=== PATIENT | female | born 1985 | race Caucasian/White ===

== ENCOUNTER 2017-04-11 19:47 | Emergency (ER) | payer SELFPAY ==
--- NOTE | 2017-04-11 20:14 | EDM.PDOC ---
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 Patient indicates she had a positive test approximately 5 days ago and she is unable to determine how she is secondary to her irregular menstrual pattern. Patient indicates she does have some abdominal and lower back.] Review of systems: As per history of present illness and below otherwise all systems reviewed and negative. Past medical history: As per history of present illness and as reviewed below otherwise noncontributory. Surgical history: As per history of present illness and as reviewed below otherwise noncontributory. Social history: No reported history of drug or alcohol abuse. Family history: As per history of present illness and as reviewed below otherwise noncontributory. Physical exam: HEENT: Atraumatic, normocephalic, pupils reactive, negative for conjunctival pallor or scleral icterus, mucous membranes moist, throat clear, neck supple, nontender, trachea midline. Lungs: Clear to auscultation, breath sounds equal bilaterally, chest nontender. Heart: S1S2, regular, negative for clicks, rubs, or JVD. Abdomen: Soft, nondistended, nontender. Negative for masses or hepatosplenomegaly. Negative for costovertebral tenderness. Pelvis: Stable nontender. Genitourinary: Deferred. Rectal: Deferred. Extremities: Atraumatic, negative for cords or calf pain. Neurovascular unremarkable. Neuro: Awake, alert, oriented. Cranial nerves II through XII unremarkable. Cerebellum unremarkable. Motor and sensory unremarkable throughout. Exam nonfocal. Global assessment is benign save the subjective complaint as noted in the history of present illness Diagnostics: [CBC, CMP, UA, transvaginal ultrasound] Therapeutics: [] Impression: [Live intrauterine ] Plan: [Pelvic rest follow-up with OB] Definitive disposition and diagnosis as appropriate pending reevaluation and review of above. abdomen Pain Score (Numeric/FACES): 2 - Related Data Allergies Allergy/AdvReac Type Severity Reaction Status Date / Time No Known Allergies Allergy Verified 04/11/17 19:52 Home Meds: Home Meds . 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: Musculoskeletal History: Reports: None Psychiatric History: Reports: None - Infectious Disease History Infectious Disease History: Reports: Chicken Pox - Past Surgical History Cardiovascular Surgical History: Reports: None Social & Family History - Family History Family Medical History: Noncontributory - Tobacco Use Smoking Status *Q: Current Every Day Smoker Years of Tobacco use: 5 Packs/Tins Daily: 1 Used Tobacco, but Quit: No Second Hand Smoke Exposure: No - Alcohol Use Days Per Week of Alcohol Use: 0 - Recreational Drug Use Recreational Drug Use: No ED ROS GENERAL - Review of Systems Review Of Systems: See Below (See history of present illness) ED EXAM - Physical Exam Exam: See Below (See history of present illness) Course - Vital Signs Last Recorded V/S: Last Vital Signs Temp 36.9 C 04/11/17 19:59 Pulse 121 H 04/11/17 19:59 Resp 18 04/11/17 19:59 BP 155/91 H 04/11/17 19:59 Pulse Ox - Orders/Labs/Meds Orders: Active Orders 24 hr Category Date Time Status OB 1st Tri Sgl 1st Gest [US] Stat Exams 04/11/17 20:03 Ordered UA W/MICROSCOPIC [URIN] Stat Lab 04/11/17 20:03 Uncollected Labs: Laboratory Tests 04/11/17 04/11/17 Range/Units 20:11 20:11 WBC 10.77 (4.0-11.0) K/uL RBC 3.85 L (4.30-5.90) M/uL Hgb 11.7 L (12.0-16.0) g/dL Hct 33.4 L (36.0-46.0) % MCV 86.8 (80.0-98.0) fL MCH 30.4 (27.0-32.0) pg MCHC 35.0 (31.0-37.0) g/dL RDW Std Deviation 40.7 (28.0-62.0) fl RDW Coeff of Chichi 13 (11.0-15.0) % Plt Count 171 (150-400) K/uL MPV 9.50 (7.40-12.00) fL Neut % (Auto) 75.5 (48.0-80.0) % Lymph % (Auto) 18.0 (16.0-40.0) % Ward % (Auto) 5.8 (0.0-15.0) % Eos % (Auto) 0.6 (0.0-7.0) % Baso % (Auto) 0.1 (0.0-1.5) % Neut # (Auto) 8.1 H (1.4-5.7) K/uL Lymph # (Auto) 1.9 (0.6-2.4) K/uL Ward # (Auto) 0.6 (0.0-0.8) K/uL Eos # (Auto) 0.1 (0.0-0.7) K/uL Baso # (Auto) 0.0 (0.0-0.1) K/uL Nucleated RBC % 0.0 /100WBC Nucleated RBCs # 0 K/uL HCG, Quant 08252.1 mIU/mL Departure - Departure Time of Disposition: 21:35 Disposition: Home, Self-Care 01 Condition: Good Clinical Impression: Threatened - Discharge Information Forms: ED Department Discharge Additional Instructions: The following information is given to patients seen in the emergency department who are being discharged to home. This information is to outline your options for follow-up care. We provide all patients seen in our emergency department with a follow-up referral. The need for follow-up, as well as the timing and circumstances, are variable depending upon the specifics of your emergency department visit. If you don't have a primary care physician on staff, we will provide you with a referral. We always advise you to contact your personal physician following an emergency department visit to inform them of the circumstance of the visit and for follow-up with them and/or the need for any referrals to a consulting specialist. The emergency department will also refer you to a specialist when appropriate. This referral assures that you have the opportunity for follow-up care with a specialist. All of these measure are taken in an effort to provide you with optimal care, which includes your follow-up. Under all circumstances we always encourage you to contact your private physician who remains a resource for coordinating your care. When calling for follow-up care, please make the office aware that this follow-up is from your recent emergency room visit. If for any reason you are refused follow-up, please contact the [facility] Emergency Department at and asked to speak to the emergency department charge nurse. Follow up with an OB some time at the beginning of next week as discussed Complete pelvic rest no stimulation from the navel to the knees the next 6 weeks Return to ED as needed as discussed [facility] [address] [place] [id number] - My Orders Last 24 Hours: My Active Orders 04/11/17 20:03 OB 1st Tri Sgl 1st Gest [US] Stat UA W/MICROSCOPIC [URIN] Stat - Assessment/Plan Last 24 Hours: My Active Orders 04/11/17 20:03 OB 1st Tri Sgl 1st Gest [US] Stat UA W/MICROSCOPIC [URIN] Stat
[2017-04-11 21:38] VITALS: BP 124/87
--- NOTE | 2017-04-14 11:25 | US ---
EXAM DATE: 04/11/17 PATIENT'S AGE: 31 Patient: JESSICA MORILLO Facility: [place], [place] Site . Site : 1985 Study: US OB Pelvis [id number]/18/2017 9:09:03 PM Ordering Physician: Doctor Radford Final Report: INDICATION: Vaginal discharge. TECHNIQUE: 2D woodard scale imaging was performed of the pelvis. FINDINGS: Sonographic imaging demonstrates a single living intrauterine gestation. The fetus demonstrates a regular cardiac rate measuring 150 beats per minute. The crown-rump length measurement of 6.6 cm corresponds to a gestational age of 12 weeks 6 days with a sonographic due date of 10/17/2017. There are no gross abnormalities noted within the fetus at this early state of development. The placenta is beginning to developanteriorlyand there is a 8 mm cystic area within the mid portion of the placenta suggesting a small venous saleh. There is no evidence of a perigestational hemorrhage. The gestational sac has a normal appearance and the amount of fluid within the sac appears appropriate for gestational age. The cervix was not imaged. The myometrium appears normal. The ovaries are of normal size. There are no suspicious fluid collections noted in the cul-de-sac. IMPRESSION: Small 8 mm venous saleh noted within the developing anterior placenta. The fetus has a gestational age of 12 weeks 6 days with a sonographic due date of 2017. Dictated by Darrick Morales MD @ Apr 11 2017 9:12PM (Electronic Signature) Report Signed by Proxy. RUBY
== END 2017-04-11 21:45 | disposition home or self-care (01) ==
LOC: MW.ED 19:47
DX: O20.0 Threatened abortion (principal); O99.331 Smoking (tobacco) complicating pregnancy, first trimester; F17.210 Nicotine dependence, cigarettes, uncomplicated
CPT/HCPCS: 76801; 76801-26; 81001; 84702; 85025; 99283; 99284-25

== ENCOUNTER 2017-10-15 15:56 | Inpatient (IN) | payer MEDICAID ==
[2017-10-15] MEDS ORDERED: Sodium Chloride 0.9% 2.5 ML Syringe FLUSH PRN (16:06)
[2017-10-15] MEDS ORDERED: Butorphanol 1 MG/ML SDV IVPUSH PRN (16:06)
[2017-10-15] MEDS ORDERED: Water For Irrigation,Sterile 1,000 ML Container IRR PRN (16:06)
[2017-10-15] MEDS ORDERED: Methylergonovine 0.2 MG/1 ML Amp IM PRN (16:06)
[2017-10-15] MEDS ORDERED: Misoprostol 200 MCG Tab PO PRN (16:06)
[2017-10-15] MEDS ORDERED: Tranexamic Acid 1,000 MG in Sodium Chloride 0.9% 100 ML IV PRN (16:06)
[2017-10-15] MEDS ORDERED: Nalbuphine 10 MG/1 ML Vial IVPUSH PRN (16:06)
[2017-10-15] MEDS ORDERED: Carboprost Tromethamine 250 MCG/1 ML Amp IM PRN (16:06)
[2017-10-15] MEDS ORDERED: Sodium Chloride 0.9% 10 ML Syringe FLUSH PRN (16:06)
[2017-10-15] MEDS ORDERED: Lidocaine 1% 50 ML MDV INJECT PRN (16:06)
[2017-10-15] MEDS ORDERED: Oxytocin/0.9 % Sodium Chloride 30 UNIT/500 ML BAG IV SCH (16:15)
[2017-10-15] MEDS: Lactated Ringers 1,000 ML IV SCH ×2 (16:20→17:05)
[2017-10-15] MEDS ORDERED: Ampicillin 2 GM in Sodium Chloride 0.9% 100 ML IV ONE (16:41)
[2017-10-15] MEDS ORDERED: fentaNYL 100 MCG/2 ML SDV ONE (16:45)
--- NOTE | 2017-10-15 17:07 | PCM.PREANE ---
Preanesthetic Assessment - Anesthesia/Transfusion/Family Hx Anesthesia History: Prior Anesthesia Without Reaction (epidurals only) Family History of Anesthesia Reaction: No - Review of Systems General: No Symptoms Pulmonary: No Symptoms Cardiovascular: No Symptoms Gastrointestinal: No Symptoms Neurological: No Symptoms Other: Reports: Anxiety (high anxiety with labor pain) - Physical Assessment NPO Status Date: 10/15/17 NPO Status Time: 17:03 (sips/chips) ASA Class: 2 Mental Status: Alert & Oriented x3 Airway Class: Mallampati = 2 Dentition: Reports: Normal Dentition ROM/Head Extension: Full Lungs: Clear to Auscultation, Normal Respiratory Effort Cardiovascular: Regular Rate, Regular Rhythm - Lab Values: Laboratory Last Values WBC 9.70 K/uL (4.0-11.0) 10/15/17 16:25 RBC 3.61 M/uL (4.30-5.90) L 10/15/17 16:25 Hgb 10.1 g/dL (12.0-16.0) L 10/15/17 16:25 Hct 30.3 % (36.0-46.0) L 10/15/17 16:25 MCV 83.9 fL (80.0-98.0) 10/15/17 16:25 MCH 28.0 pg (27.0-32.0) 10/15/17 16:25 MCHC 33.3 g/dL (31.0-37.0) 10/15/17 16:25 RDW Std Deviation 42.8 fl (28.0-62.0) 10/15/17 16:25 RDW Coeff of Chichi 14 % (11.0-15.0) 10/15/17 16:25 Plt Count 185 K/uL (150-400) 10/15/17 16:25 MPV 10.70 fL (7.40-12.00) 10/15/17 16:25 Nucleated RBC % 0.0 /100WBC 10/15/17 16:25 Nucleated RBCs # 0 K/uL 10/15/17 16:25 - Allergies Allergies/Adverse Reactions: Allergies Allergy/AdvReac Type Severity Reaction Status Date / Time No Known Allergies Allergy Verified 04/11/17 19:52 - Blood Blood Available: No Product(s) Available: None - Anesthesia Plan Free Text/Narrative:: Labor Epidural vs Intrathecal - after discussing with pt, she is agreement to do the intrathecal now as she has had fast labors in the past and was dilated to 6cm on arrival - pt understands that we can place a labor epidural if it looks like she is not advancing as quickly as we thought she would. Pt has also only had one visit. 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 [No Known Home Meds] 08/11/14 [History] - CURRENT (IN HOUSE) MEDS Current Meds: Current Medications Butorphanol Tartrate (Stadol) 1 mg IVPUSH Q1H PRN PRN Reason: Pain Carboprost Tromethamine (Hemabate Ds) 250 mcg IM ASDIRECTED PRN PRN Reason: Post Hemorrhage Lactated Ringer's (Ringers, Lactated) 1,000 mls @ 150 mls/hr IV ASDIRECTED [facility] Oxytocin/Sodium Chloride (Oxytocin 30 Unit/500 Ml-Ns) 30 unit in 500 mls @ 999 mls/hr IV TITRATE [facility] Tranexamic Acid 1,000 mg/ (Sodium Chloride) 110 mls @ 600 mls/hr IV ONETIME PRN PRN Reason: Bleeding Ampicillin Sodium 2 gm/ Sodium (Chloride) 100 mls @ 200 mls/hr IV ONETIME ONE Stop: 10/15/17 17:10 Ampicillin Sodium 1 gm/ Sodium (Chloride) 50 mls @ 100 mls/hr IV Q4H [facility] Lidocaine HCl (Xylocaine 1%) 50 ml INJECT .ONCE PRN PRN Reason: Laceration repair Methylergonovine Maleate (Methergine) 0.2 mg IM ASDIRECTED PRN PRN Reason: Post Hemorrhage Misoprostol (Cytotec) 200 mcg PO .ONCE PRN PRN Reason: Post Hemorrhage Nalbuphine HCl (Nubain) 10 mg IVPUSH Q1H PRN PRN Reason: Pain (severe 7-10) Sodium Chloride (Saline Flush) 10 ml FLUSH ASDIRECTED PRN PRN Reason: Keep Vein Open Sodium Chloride (Saline Flush) 2.5 ml FLUSH ASDIRECTED PRN PRN Reason: Keep Vein Open Sterile Water (Sterile Water For Irrigation) 1,000 ml IRR ASDIRECTED PRN PRN Reason: delivery Discontinued Medications Fentanyl (Sublimaze) Confirm Administered Dose 100 mcg .ROUTE .STK-MED ONE Stop: 10/15/17 16:46 Fentanyl/Bupivacaine HCl (Vkesdxbb-Kmbys-Dm 2 Mcg/Ml-0.125%) Confirm Administered Dose 100 mls @ as directed EP .STK-MED ONE Stop: 10/15/17 16:46
--- NOTE | 2017-10-15 17:36 | PCM.LDHP ---
L&D History of Present Illness - General Date of Service: 10/15/17 Admit Problem/Dx: Patient Status Order with Admit Dx/Problem 10/15/17 16:06 Patient Status [ADT] Routine Admission Diagnosis/Problem Admission Diagnosis/Problem Source of Information: Patient History Limitations: Reports: No Limitations - History of Present Illness Improves with: Reports: None Worsens with: Reports: None Associated Symptoms: Reports: N - Related Data Allergies/Adverse Reactions: Allergies Allergy/AdvReac Type Severity Reaction Status Date / Time No Known Allergies Allergy Verified 10/15/17 17:31 Home Medications: Home Meds . 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: Musculoskeletal History: Reports: None Psychiatric History: Reports: None - Infectious Disease History Infectious Disease History: Reports: Chicken Pox - Past Surgical History Cardiovascular Surgical History: Reports: None Social & Family History - Family History Family Medical History: Noncontributory - Tobacco Use Smoking Status *Q: Current Every Day Smoker Years of Tobacco use: 5 Packs/Tins Daily: 1 Used Tobacco, but Quit: No Second Hand Smoke Exposure: No - Alcohol Use Days Per Week of Alcohol Use: 0 - Recreational Drug Use Recreational Drug Use: No H&P Review of Systems - Review of Systems: Review Of Systems: See Below General: Reports: No Symptoms HEENT: Reports: No Symptoms Pulmonary: Reports: No Symptoms Cardiovascular: Reports: No Symptoms Gastrointestinal: Reports: No Symptoms Genitourinary: Reports: No Symptoms Musculoskeletal: Reports: No Symptoms Skin: Reports: No Symptoms Psychiatric: Reports: No Symptoms Neurological: Reports: No Symptoms Hematologic/Lymphatic: Reports: No Symptoms Immunologic: Reports: No Symptoms L&D Exam - Exam Exam: See Below - Vital Signs Weight: 76.204 kg - OB Specific Fundal Height In cm: 38 Contraction Intensity: Moderate to Strong Movement: Active Heart Tones: Present Presentation: Vertex - Exam General: Alert, Oriented HEENT: PERRLA, Conjunctiva Clear, EACs Clear, EOMI, Hearing Intact, Mucosa Moist & [place], Nares Patent, Normal Nasal Septum, Posterior Pharynx Clear, TMs Clear Neck: Supple, Trachea Midline Lungs: Clear to Auscultation, Normal Respiratory Effort Cardiovascular: Regular Rate, Regular Rhythm GI/Abdominal Exam: Normal Bowel Sounds, Soft, Non-Tender, No Organomegaly, No Distention, No Abnormal Bruit, No Mass, Pelvis Stable Rectal Exam: Normal Exam, Normal Rectal Tone Genitourinary: Normal external exam, Normal bimanual exam, Normal speculum exam Back Exam: Normal Inspection, Full Range of Motion Extremities: Normal Inspection, Normal Range of Motion, Non-Tender, No Pedal Edema, Normal Capillary Refill Skin: Warm, Dry, Intact Neurological: Cranial Nerves Intact, Reflexes Equal Bilateral Psychiatric: Alert, Normal Affect, Normal Mood - Patient Data Lab Results Last 24 hrs: Laboratory Results - last 24 hr 10/15/17 10/15/17 Range/Units 16:25 16:25 WBC 9.70 (4.0-11.0) K/uL RBC 3.61 L (4.30-5.90) M/uL Hgb 10.1 L (12.0-16.0) g/dL Hct 30.3 L (36.0-46.0) % MCV 83.9 (80.0-98.0) fL MCH 28.0 (27.0-32.0) pg MCHC 33.3 (31.0-37.0) g/dL RDW Std Deviation 42.8 (28.0-62.0) fl RDW Coeff of Chicih 14 (11.0-15.0) % Plt Count 185 (150-400) K/uL MPV 10.70 (7.40-12.00) fL Nucleated RBC % 0.0 /100WBC Nucleated RBCs # 0 K/uL Blood Type A POSITIVE Antibody Screen NEGATIVE Result Diagrams: 10/15/17 16:25 Problem List Initiated/Reviewed/Updated: Yes Orders Last 24hrs: Active Orders 24 hr Category Date Time Status Patient Status [ADT] Routine ADT 10/15/17 16:06 Active Heart Tones [RC] CONTINUOUS Care 10/15/17 16:06 Active Non Stress Test [RC] PER UNIT ROUTINE Care 10/15/17 16:06 Active May Shower [RC] ASDIRECTED Care 10/15/17 16:06 Active Notify Provider [RC] PRN Care 10/15/17 16:06 Active Up ad Dulce [RC] ASDIRECTED Care 10/15/17 16:06 Active Vaginal Exam [RC] PRN Care 10/15/17 16:06 Active Vital Signs [RC] PER UNIT ROUTINE Care 10/15/17 16:06 Active DRUG SCREEN, URINE [URCHEM] Routine Lab 10/15/17 17:31 Ordered TYPE AND SCREEN [BBK] Routine Lab 10/15/17 16:25 Received Ampicillin 1 gm Med 10/15/17 20:45 Active Sodium Chloride 0.9% [Normal Saline] 50 ml IV Q4H Butorphanol [Stadol] Med 10/15/17 16:06 Active 1 mg IVPUSH Q1H PRN Carboprost Tromethamine [Hemabate DS] Med 10/15/17 16:06 Active 250 mcg IM ASDIRECTED PRN Lactated Ringers [Ringers, Lactated] 1,000 ml Med 10/15/17 16:15 Active IV ASDIRECTED Lidocaine 1% [Xylocaine 1%] Med 10/15/17 16:06 Active 50 ml INJECT .ONCE PRN Methylergonovine [Methergine] Med 10/15/17 16:06 Active 0.2 mg IM ASDIRECTED PRN Misoprostol [Cytotec] Med 10/15/17 16:06 Active 200 mcg PO .ONCE PRN Nalbuphine [Nubain] Med 10/15/17 16:06 Active 10 mg IVPUSH Q1H PRN Oxytocin/0.9 % Sodium Chloride [Oxytocin 30 Unit/500 ML Med 10/15/17 16:15 Active -NS] 30 unit in 500 ml IV TITRATE Sodium Chloride 0.9% [Saline Flush] Med 10/15/17 16:06 Active 10 ml FLUSH ASDIRECTED PRN Sodium Chloride 0.9% [Saline Flush] Med 10/15/17 16:06 Active 2.5 ml FLUSH ASDIRECTED PRN Tranexamic Acid [Cyklokapron] 1,000 mg Med 10/15/17 16:06 Active Sodium Chloride 0.9% [Normal Saline] 100 ml IV ONETIME Water For Irrigation,Sterile [Sterile Water for Med 10/15/17 16:06 Active Irrigation] 1,000 ml IRR ASDIRECTED PRN Scalp Electrode [WOMSER] Per Unit Routine Oth 10/15/17 16:06 Ordered Peripheral IV Insertion Adult [OM.PC] Routine Oth 10/15/17 16:06 Ordered Resuscitation Status Routine Resus Stat 10/15/17 16:06 Ordered Medication Orders Butorphanol Tartrate (Stadol) 1 mg IVPUSH Q1H PRN PRN Reason: Pain Carboprost Tromethamine (Hemabate Ds) 250 mcg IM ASDIRECTED PRN PRN Reason: Post Hemorrhage Lactated Ringer's (Ringers, Lactated) 1,000 mls @ 150 mls/hr IV ASDIRECTED [facility] Last Admin: 10/15/17 17:05 Dose: 150 mls/hr Infusion: 10/15/17 17:05 Dose: 999 mls/hr Admin: 10/15/17 16:20 Dose: 999 mls/hr Oxytocin/Sodium Chloride (Oxytocin 30 Unit/500 Ml-Ns) 30 unit in 500 mls @ 999 mls/hr IV TITRATE [facility] Tranexamic Acid 1,000 mg/ (Sodium Chloride) 110 mls @ 600 mls/hr IV ONETIME PRN PRN Reason: Bleeding Ampicillin Sodium 1 gm/ Sodium (Chloride) 50 mls @ 100 mls/hr IV Q4H [facility] Lidocaine HCl (Xylocaine 1%) 50 ml INJECT .ONCE PRN PRN Reason: Laceration repair Methylergonovine Maleate (Methergine) 0.2 mg IM ASDIRECTED PRN PRN Reason: Post Hemorrhage Misoprostol (Cytotec) 200 mcg PO .ONCE PRN PRN Reason: Post Hemorrhage Nalbuphine HCl (Nubain) 10 mg IVPUSH Q1H PRN PRN Reason: Pain (severe 7-10) Sodium Chloride (Saline Flush) 10 ml FLUSH ASDIRECTED PRN PRN Reason: Keep Vein Open Sodium Chloride (Saline Flush) 2.5 ml FLUSH ASDIRECTED PRN PRN Reason: Keep Vein Open Sterile Water (Sterile Water For Irrigation) 1,000 ml IRR ASDIRECTED PRN PRN Reason: delivery Assessment/Plan Comment:: This is a 31 years old patient she is para [id number] she was seen in our clinic 1 time at gestational age 14 according to that the patient EDC is in October 17, 2017 the patient presented to labor and delivery in active labor at the time of admission 5-6 cm dilated vertex with the leaking back before however according to labor and delivery nurses the patient is have bulging bag of water. Her GBS status is unknown shows start her on antibiotic the patient requested epidural try to accommodate that the patient admitted to labor and delivery nurse that she is using methamphetamine and marijuana throughout this .
[2017-10-15] MEDS ORDERED: Lanolin 100% Cream 7 GM Tube TOP PRN (18:30)
[2017-10-15] MEDS ORDERED: Benzocaine/Menthol 20%-0.5% Spray 78 GM Cannister TOP PRN (18:30)
[2017-10-15] MEDS ORDERED: Witch Hazel Medicated Pads 40/Jar TOP PRN (18:30)
[2017-10-15] MEDS ORDERED: Ibuprofen 400 MG Tab PO PRN (18:30)
[2017-10-15] MEDS ORDERED: Bisacodyl 10 MG Supp RECTAL PRN (18:30)
[2017-10-15] MEDS ORDERED: Acetaminophen 500 MG Tab PO PRN (18:30)
[2017-10-15] MEDS ORDERED: Docusate Sodium 100 MG Cap PO PRN (18:30)
[2017-10-15] MEDS: oxyCODONE 5 MG Tab PO PRN (19:19)
[2017-10-15] MEDS: Ibuprofen 800 MG Tab PO PRN (19:20)
[2017-10-15] MEDS ORDERED: Butorphanol 1 MG/ML SDV ONE (20:14)
[2017-10-15] MEDS ORDERED: Ampicillin 1 GM in Sodium Chloride 0.9% 50 ML IV SCH (20:45)
--- NOTE | 2017-10-15 23:22 | OR ---
SURGEON: Cristino Junior MD DATE OF PROCEDURE: Ms. Nj is a 31-year-old. She is para 5-0-0-4. She is presented to Labor and Delivery in active labor. The patient was seen in the clinic once in this and that was at gestational age of 14 weeks. The patient did not report back to the clinic. However, at that time, we set her due date as October 17, 2017. The patient at that time presented in active labor. She was 5-6 cm dilated and in active labor. heart rate essentially is category I. The patient's GBS status is negative, so she was started on antibiotic appropriately and after antibiotic was infused, then she progressed to 8-9 cm, she started leaking fluid, and she ruptured spontaneously and during the examination, I finished rupturing her membrane. There was a meconium stained amniotic fluid. The patient had an intrathecal for her labor analgesia, and she continued to progress, and she was able to accomplish normal spontaneous vaginal delivery of a female fetus. score reported to be 8 and 9. The weight is not available. The placenta have to be delivered manually because the cord is disintegrated. Estimated blood loss, 250 to 300 mL. heart rate was category I. The patient admitted to the Labor and Delivery staff that she used meth and pot during this . Drug screen is sent for this purpose. There was no complication in this labor and . FRANKY / CHRISTOFER /[id number]
[2017-10-16] MEDS: oxyCODONE 5 MG Tab PO PRN ×4 (05:09→19:59)
[2017-10-16] MEDS: Ibuprofen 800 MG Tab PO PRN ×3 (05:10→19:58)
--- NOTE | 2017-10-16 07:15 | PCM48HPAN ---
Post Anesthesia Note - EVALUATION WITHIN 48HRS OF ANESTHETIC Vital Signs in Normal Range: Yes Patient Participated in Evaluation: Yes Respiratory Function Stable: Yes Airway Patent: Yes Cardiovascular Function Stable: Yes Hydration Status Stable: Yes Pain Control Satisfactory: Yes Nausea and Vomiting Control Satisfactory: Yes Mental Status Recovered: Yes Resp Rate: 14
[2017-10-16] MEDS: Acetaminophen 500 MG Tab PO PRN ×2 (08:28→13:54)
--- NOTE | 2017-10-16 10:17 | PCM.PNPP ---
- General Info Date of Service: 10/16/17 Functional Status: Reports: Pain Controlled - Review of Systems General: Reports: No Symptoms HEENT: Reports: No Symptoms Pulmonary: Reports: No Symptoms Cardiovascular: Reports: No Symptoms Gastrointestinal: Reports: No Symptoms Genitourinary: Reports: No Symptoms Musculoskeletal: Reports: No Symptoms Skin: Reports: No Symptoms Neurological: Reports: No Symptoms Psychiatric: Reports: No Symptoms - General Info Date of Service: 10/16/17 - Patient Data Vital Signs - Most Recent: Last Vital Signs Temp 36.6 C 10/16/17 08:10 Pulse 106 H 10/16/17 08:10 Resp 17 10/16/17 08:10 BP 112/63 10/16/17 08:10 Pulse Ox 98 10/16/17 08:10 Weight - Most Recent: 76.204 kg Lab Results - Last 24 Hours: Laboratory Results - last 24 hr 10/15/17 10/15/17 10/15/17 Range/Units 16:25 16:25 17:15 WBC 9.70 (4.0-11.0) K/uL RBC 3.61 L (4.30-5.90) M/uL Hgb 10.1 L (12.0-16.0) g/dL Hct 30.3 L (36.0-46.0) % MCV 83.9 (80.0-98.0) fL MCH 28.0 (27.0-32.0) pg MCHC 33.3 (31.0-37.0) g/dL RDW Std Deviation 42.8 (28.0-62.0) fl RDW Coeff of [place]ichi 14 (11.0-15.0) % Plt Count 185 (150-400) K/uL MPV 10.70 (7.40-12.00) fL Nucleated RBC % 0.0 /100WBC Nucleated RBCs # 0 K/uL Urine Opiates Screen NEGATIVE (NEGATIVE) Ur Oxycodone Screen NEGATIVE (NEGATIVE) Urine Methadone Screen NEGATIVE (NEGATIVE) Ur Barbiturates Screen NEGATIVE (NEGATIVE) Ur Phencyclidine Scrn NEGATIVE (NEGATIVE) Ur Amphetamine Screen NEGATIVE (NEGATIVE) U Methamphetamines Scrn POSITIVE (NEGATIVE) U Benzodiazepines Scrn NEGATIVE (NEGATIVE) U Cocaine Metab Screen NEGATIVE (NEGATIVE) U Marijuana (THC) Screen POSITIVE (NEGATIVE) Blood Type A POSITIVE Antibody Screen NEGATIVE 10/15/17 10/15/17 10/16/17 Range/Units 21:00 21:00 05:12 WBC (4.0-11.0) K/uL RBC (4.30-5.90) M/uL Hgb 9.5 L 8.0 L (12.0-16.0) g/dL Hct 28.3 L 24.0 L (36.0-46.0) % MCV (80.0-98.0) fL MCH (27.0-32.0) pg MCHC (31.0-37.0) g/dL RDW Std Deviation (28.0-62.0) fl RDW Coeff of [place] (11.0-15.0) % Plt Count (150-400) K/uL MPV (7.40-12.00) fL Nucleated RBC % /100WBC Nucleated RBCs # K/uL Urine Opiates Screen (NEGATIVE) Ur Oxycodone Screen (NEGATIVE) Urine Methadone Screen (NEGATIVE) Ur Barbiturates Screen (NEGATIVE) Ur Phencyclidine Scrn (NEGATIVE) Ur Amphetamine Screen (NEGATIVE) U Methamphetamines Scrn (NEGATIVE) U Benzodiazepines Scrn (NEGATIVE) U Cocaine Metab Screen (NEGATIVE) U Marijuana (THC) Screen (NEGATIVE) Blood Type Antibody Screen Med Orders - Current: Current Medications Acetaminophen (Tylenol Extra Strength) 500 mg PO Q4H PRN PRN Reason: Pain Acetaminophen (Tylenol Extra Strength) 1,000 mg PO Q4H PRN PRN Reason: Pain Last Admin: 10/16/17 08:28 Dose: 1,000 mg Benzocaine/Menthol (Dermoplast Pain Relief 20%-0.5% [place]) 0 gm TOP ASDIRECTED PRN PRN Reason: Perineal Comfort Measure Bisacodyl (Dulcolax) 10 mg RECTAL .ONCE PRN PRN Reason: Constipation Butorphanol Tartrate (Stadol) 1 mg IVPUSH Q1H PRN PRN Reason: Pain Last Admin: 10/15/17 20:18 Dose: 1 mg Carboprost Tromethamine (Hemabate Ds) 250 mcg IM ASDIRECTED PRN PRN Reason: Post Hemorrhage Docusate Sodium (Colace) 100 mg PO BID PRN PRN Reason: Constipation Emollient Ointment (Lansinoh Hpa) 0 gm TOP ASDIRECTED PRN PRN Reason: Sore Nipples Lactated Ringer's (Ringers, Lactated) 1,000 mls @ 150 mls/hr IV ASDIRECTED [facility] Last Admin: 10/15/17 17:05 Dose: 150 mls/hr Oxytocin/Sodium Chloride (Oxytocin 30 Unit/500 Ml-Ns) 30 unit in 500 mls @ 999 mls/hr IV TITRATE [facility] Last Admin: 10/15/17 18:21 Dose: 999 mls/hr Tranexamic Acid 1,000 mg/ (Sodium Chloride) 110 mls @ 600 mls/hr IV ONETIME PRN PRN Reason: Bleeding Ampicillin Sodium 1 gm/ Sodium (Chloride) 50 mls @ 100 mls/hr IV Q4H [facility] Ibuprofen (Motrin) 400 mg PO Q4H PRN PRN Reason: Pain Ibuprofen (Motrin) 800 mg PO Q6H PRN PRN Reason: Pain Last Admin: 10/16/17 05:10 Dose: 800 mg Lidocaine HCl (Xylocaine 1%) 50 ml INJECT .ONCE PRN PRN Reason: Laceration repair Methylergonovine Maleate (Methergine) 0.2 mg IM ASDIRECTED PRN PRN Reason: Post Hemorrhage Last Admin: 10/15/17 19:58 Dose: 0.2 mg Misoprostol (Cytotec) 200 mcg PO .ONCE PRN PRN Reason: Post Hemorrhage Nalbuphine HCl (Nubain) 10 mg IVPUSH Q1H PRN PRN Reason: Pain (severe 7-10) Oxycodone HCl (Oxycodone) 5 mg PO Q2H PRN PRN Reason: Pain Last Admin: 10/16/17 08:28 Dose: 5 mg Sodium Chloride (Saline Flush) 10 ml FLUSH ASDIRECTED PRN PRN Reason: Keep Vein Open Sodium Chloride (Saline Flush) 2.5 ml FLUSH ASDIRECTED PRN PRN Reason: Keep Vein Open Sterile Water (Sterile Water For Irrigation) 1,000 ml IRR ASDIRECTED PRN PRN Reason: delivery Witch Demetrice (Tucks) 1 pad TOP ASDIRECTED PRN PRN Reason: comfort care Discontinued Medications Butorphanol Tartrate (Stadol) Confirm Administered Dose 1 mg .ROUTE .STK-MED ONE Stop: 10/15/17 20:15 Last Admin: 10/15/17 20:34 Dose: 1 mg Fentanyl (Sublimaze) Confirm Administered Dose 100 mcg .ROUTE .STK-MED ONE Stop: 10/15/17 16:46 Ampicillin Sodium 2 gm/ Sodium (Chloride) 100 mls @ 200 mls/hr IV ONETIME ONE Stop: 10/15/17 17:10 Last Admin: 10/15/17 17:20 Dose: 200 mls/hr Fentanyl/Bupivacaine HCl (Npgtmoze-Mkvno-Hv 2 Mcg/Ml-0.125%) Confirm Administered Dose 100 mls @ as directed EP .STK-MED ONE Stop: 10/15/17 16:46 - Interaction Disposition, : Not Applicable Infant Interaction: Not Applicable Support Person: Mother - Recovery Exam Fundal Tone: Firm Fundal Level: At Umbilicus Fundal Placement: Midline Lochia Amount: Small Lochia Color: Rubra/Red Perineum Description: Intact, Minimal Bruising/Swelling Episiotomy/Laceration: None Bladder Status: Voiding - Exam General: Alert, Oriented HEENT: Pupils Equal Neck: Supple Lungs: Clear to Auscultation, Normal Respiratory Effort Cardiovascular: Regular Rate, Regular Rhythm GI/Abdominal Exam: Normal Bowel Sounds, Soft, Non-Tender, No Organomegaly, No Distention, No Abnormal Bruit, No Mass, Pelvis Stable Extremities: Normal Inspection, Normal Range of Motion, Non-Tender, No Pedal Edema, Normal Capillary Refill Skin: Warm, Dry, Intact Wound/Incisions: Healing Well Neurological: No New Focal Deficit Psy/Mental Status: Alert, Normal Affect, Normal Mood - Problem List Review Problem List Initiated/Reviewed/Updated: Yes - My Orders Last 24 Hours: My Active Orders 10/15/17 16:06 Butorphanol [Stadol] 1 mg IVPUSH Q1H PRN Carboprost Tromethamine [Hemabate DS] 250 mcg IM ASDIRECTED PRN Lidocaine 1% [Xylocaine 1%] 50 ml INJECT .ONCE PRN Methylergonovine [Methergine] 0.2 mg IM ASDIRECTED PRN Misoprostol [Cytotec] 200 mcg PO .ONCE PRN Nalbuphine [Nubain] 10 mg IVPUSH Q1H PRN Sodium Chloride 0.9% [Saline Flush] 10 ml FLUSH ASDIRECTED PRN Sodium Chloride 0.9% [Saline Flush] 2.5 ml FLUSH ASDIRECTED PRN Tranexamic Acid [Cyklokapron] 1,000 mg Sodium Chloride 0.9% [Normal Saline] 100 ml IV ONETIME Water For Irrigation,Sterile [Sterile Water for Irrigation] 1,000 ml IRR ASDIRECTED PRN Scalp Electrode [WOMSER] Per Unit Routine Peripheral IV Insertion Adult [OM.PC] Routine Resuscitation Status Routine 10/15/17 16:15 Lactated Ringers [Ringers, Lactated] 1,000 ml IV ASDIRECTED Oxytocin/0.9 % Sodium Chloride [Oxytocin 30 Unit/500 ML-NS] 30 unit in 500 ml IV TITRATE 10/15/17 18:30 Patient Status [ADT] Routine May Shower [RC] ASDIRECTED Up ad [place] [RC] ASDIRECTED Vital Signs [RC] PER UNIT ROUTINE Acetaminophen [Tylenol Extra Strength] 1,000 mg PO Q4H PRN Acetaminophen [Tylenol Extra Strength] 500 mg PO Q4H PRN Benzocaine/Menthol [Dermoplast Pain Relief 20%-0.5% [place]] 0 gm TOP ASDIRECTED PRN Bisacodyl [Dulcolax] 10 mg RECTAL .ONCE PRN Docusate Sodium [Colace] 100 mg PO BID PRN Ibuprofen [Motrin] 400 mg PO Q4H PRN Ibuprofen [Motrin] 800 mg PO Q6H PRN Lanolin [Lansinoh HPA] See Dose Instructions TOP ASDIRECTED PRN Witch Demetrice [Tucks] 1 pad TOP ASDIRECTED PRN oxyCODONE 5 mg PO Q2H PRN Assess Lochia [WOMSER] Per Unit Routine Assess Uterine Involution [WOMSER] Per Unit Routine Peripheral IV Discontinue [OM.PC] Routine 10/15/17 20:45 Ampicillin 1 gm Sodium Chloride 0.9% [Normal Saline] 50 ml IV Q4H 10/16/17 Breakfast Regular Diet [DIET] Regular Diet [DIET] 10/16/17 Lunch Regular Diet [DIET] - Assessment Assessment:: S/P doing well. Will send home today. - Plan Plan:: This is a 31 years old patient she is para [id number] she was seen in our clinic 1 time at gestational age 14 according to that the patient EDC is in October 17, 2017 the patient presented to labor and delivery in active labor at the time of admission 5-6 cm dilated vertex with the leaking back before however according to labor and delivery nurses the patient is have bulging bag of water. Her GBS status is unknown shows start her on antibiotic the patient requested epidural try to accommodate that the patient admitted to labor and delivery nurse that she is using methamphetamine and marijuana throughout this .
[2017-10-17] MEDS: Acetaminophen 500 MG Tab PO PRN (00:17)
[2017-10-17] MEDS: oxyCODONE 5 MG Tab PO PRN (06:01)
[2017-10-17] MEDS: Ibuprofen 800 MG Tab PO PRN (06:02)
[2017-10-17 07:55] VITALS: BP 126/80
--- NOTE | 2017-10-17 10:02 | PCM.PNPP ---
- General Info Date of Service: 10/17/17 Functional Status: Reports: Pain Controlled - Review of Systems General: Reports: No Symptoms HEENT: Reports: No Symptoms Pulmonary: Reports: No Symptoms Cardiovascular: Reports: No Symptoms Gastrointestinal: Reports: No Symptoms Genitourinary: Reports: No Symptoms Musculoskeletal: Reports: No Symptoms Skin: Reports: No Symptoms Neurological: Reports: No Symptoms Psychiatric: Reports: No Symptoms - General Info Date of Service: 10/17/17 - Patient Data Vital Signs - Most Recent: Last Vital Signs Temp 36.2 C 10/17/17 04:32 Pulse 85 10/17/17 07:00 Resp 16 10/17/17 07:00 BP 126/80 10/17/17 07:00 Pulse Ox 99 10/17/17 07:00 Weight - Most Recent: 76.204 kg Med Orders - Current: Current Medications Acetaminophen (Tylenol Extra Strength) 500 mg PO Q4H PRN PRN Reason: Pain Acetaminophen (Tylenol Extra Strength) 1,000 mg PO Q4H PRN PRN Reason: Pain Last Admin: 10/17/17 00:17 Dose: 1,000 mg Benzocaine/Menthol (Dermoplast Pain Relief 20%-0.5% [place]) 0 gm TOP ASDIRECTED PRN PRN Reason: Perineal Comfort Measure Bisacodyl (Dulcolax) 10 mg RECTAL .ONCE PRN PRN Reason: Constipation Butorphanol Tartrate (Stadol) 1 mg IVPUSH Q1H PRN PRN Reason: Pain Last Admin: 10/15/17 20:18 Dose: 1 mg Carboprost Tromethamine (Hemabate Ds) 250 mcg IM ASDIRECTED PRN PRN Reason: Post Hemorrhage Docusate Sodium (Colace) 100 mg PO BID PRN PRN Reason: Constipation Emollient Ointment (Lansinoh Hpa) 0 gm TOP ASDIRECTED PRN PRN Reason: Sore Nipples Lactated Ringer's (Ringers, Lactated) 1,000 mls @ 150 mls/hr IV ASDIRECTED ALIRIO Last Admin: 10/15/17 17:05 Dose: 150 mls/hr Oxytocin/Sodium Chloride (Oxytocin 30 Unit/500 Ml-Ns) 30 unit in 500 mls @ 999 mls/hr IV TITRATE [facility] Last Admin: 10/15/17 18:21 Dose: 999 mls/hr Tranexamic Acid 1,000 mg/ (Sodium Chloride) 110 mls @ 600 mls/hr IV ONETIME PRN PRN Reason: Bleeding Ibuprofen (Motrin) 400 mg PO Q4H PRN PRN Reason: Pain Ibuprofen (Motrin) 800 mg PO Q6H PRN PRN Reason: Pain Last Admin: 10/17/17 06:02 Dose: 800 mg Lidocaine HCl (Xylocaine 1%) 50 ml INJECT .ONCE PRN PRN Reason: Laceration repair Methylergonovine Maleate (Methergine) 0.2 mg IM ASDIRECTED PRN PRN Reason: Post Hemorrhage Last Admin: 10/15/17 19:58 Dose: 0.2 mg Misoprostol (Cytotec) 200 mcg PO .ONCE PRN PRN Reason: Post Hemorrhage Nalbuphine HCl (Nubain) 10 mg IVPUSH Q1H PRN PRN Reason: Pain (severe 7-10) Oxycodone HCl (Oxycodone) 5 mg PO Q2H PRN PRN Reason: Pain Last Admin: 10/17/17 06:01 Dose: 5 mg Sodium Chloride (Saline Flush) 10 ml FLUSH ASDIRECTED PRN PRN Reason: Keep Vein Open Sodium Chloride (Saline Flush) 2.5 ml FLUSH ASDIRECTED PRN PRN Reason: Keep Vein Open Sterile Water (Sterile Water For Irrigation) 1,000 ml IRR ASDIRECTED PRN PRN Reason: delivery Witch Demetrice (Tucks) 1 pad TOP ASDIRECTED PRN PRN Reason: comfort care Discontinued Medications Butorphanol Tartrate (Stadol) Confirm Administered Dose 1 mg .ROUTE .STK-MED ONE Stop: 10/15/17 20:15 Last Admin: 10/15/17 20:34 Dose: 1 mg Fentanyl (Sublimaze) Confirm Administered Dose 100 mcg .ROUTE .STK-MED ONE Stop: 10/15/17 16:46 Ampicillin Sodium 2 gm/ Sodium (Chloride) 100 mls @ 200 mls/hr IV ONETIME ONE Stop: 10/15/17 17:10 Last Admin: 10/15/17 17:20 Dose: 200 mls/hr Ampicillin Sodium 1 gm/ Sodium (Chloride) 50 mls @ 100 mls/hr IV Q4H ALIRIO Fentanyl/Bupivacaine HCl (Czmsbzag-Iflij-Wd 2 Mcg/Ml-0.125%) Confirm Administered Dose 100 mls @ as directed EP .STK-MED ONE Stop: 10/15/17 16:46 - Interaction Infant Disposition, : Not Applicable Infant Interaction: Not Applicable Support Person: Mother - Recovery Exam Fundal Tone: Firm Fundal Level: 1 Fingerbreadths Below Umbilicus Fundal Placement: Midline Lochia Amount: Scant Lochia Color: Rubra/Red Perineum Description: Intact, Minimal Bruising/Swelling Episiotomy/Laceration: None Bladder Status: Voiding Urinary Elimination: Voided - Exam General: Alert, Oriented HEENT: Pupils Equal Neck: Supple Lungs: Clear to Auscultation, Normal Respiratory Effort Cardiovascular: Regular Rate, Regular Rhythm GI/Abdominal Exam: Normal Bowel Sounds, Soft, Non-Tender, No Organomegaly, No Distention, No Abnormal Bruit, No Mass, Pelvis Stable Extremities: Normal Inspection, Normal Range of Motion, Non-Tender, No Pedal Edema, Normal Capillary Refill Skin: Warm, Dry, Intact Wound/Incisions: Healing Well Neurological: No New Focal Deficit Psy/Mental Status: Alert, Normal Affect, Normal Mood - Problem List Review Problem List Initiated/Reviewed/Updated: Yes - My Orders Last 24 Hours: My Active Orders 10/16/17 10:18 Ready for Discharge [RC] PER UNIT ROUTINE 10/16/17 Lunch Regular Diet [DIET] 10/17/17 08:42 Ready for Discharge [RC] PER UNIT ROUTINE - Assessment Assessment:: S/P doing well. Will send home today. - Plan Plan:: This is a 31 years old patient she is para [id number] she was seen in our clinic 1 time at gestational age 14 according to that the patient EDC is in October 17, 2017 the patient presented to labor and delivery in active labor at the time of admission 5-6 cm dilated vertex with the leaking back before however according to labor and delivery nurses the patient is have bulging bag of water. Her GBS status is unknown shows start her on antibiotic the patient requested epidural try to accommodate that the patient admitted to labor and delivery nurse that she is using methamphetamine and marijuana throughout this .
== END 2017-10-17 09:45 | disposition home or self-care (01) | DRG 775 ==
LOC: MW.OBCHECK 15:56 → MW.OB 16:00 → MW.OBCHECK 16:06 → OBSVTOIN 18:30 → MW.OB 23:13
PROVIDERS: ADMIT Obstetrics & Gynecology; ATTEND Obstetrics & Gynecology
PROC: 10E0XZZ Delivery of Products of Conception, External Approach (ICD-10-PCS; principal; 2017-10-15)
DX: O99.324 Drug use complicating childbirth (principal); F15.90 Other stimulant use, unspecified, uncomplicated; F12.90 Cannabis use, unspecified, uncomplicated; Z3A.40 40 weeks gestation of pregnancy; Z37.0 Single live birth
CPT/HCPCS: 36415; 51702; 59025; 59409; 80305; 85014; 85018; 85027; 86850; 86900; 86901; A9270-GY; J0290; J0595; J2210; J2590; J3010; J7030; J7120

== ENCOUNTER 2017-10-25 01:11 | Day surgery (SDC) | payer MEDICAID ==
--- NOTE | 2017-10-25 01:14 | EDM.PDOC ---
ED HPI GENERAL MEDICAL PROBLEM - General Stated Complaint: BLEEDING Time Seen by Provider: 10/25/17 01:13 Source of Information: Reports: Patient - History of Present Illness INITIAL COMMENTS - FREE TEXT/NARRATIVE: HISTORY AND PHYSICAL: History of present illness: [ ][Patient is G5 para 5 presents 10 days post vaginal delivery, apparently she had some excessive bleeding post delivery and was kept for several days due to the bleeding. Bleeding and waned however she continues to have some blood vaginal bleeding, the patient she has went through 5 pads today total. She is in no distress clinically on exam however she states that she feels shaky mostly she is concerned and I think tired of bleeding, she has read on the Internet she is getting on the longer side of bleeding . Symptomatically she has no fever nausea vomiting chills sweats no chest pain shortness breath headache dizziness or palpitation no bowel or urine symptoms at current Hemoglobin on October 16 was 8.0 now is 8.3 Review of systems: As per history of present illness and below otherwise all systems reviewed and negative. Past medical history: As per history of present illness and as reviewed below otherwise noncontributory. Surgical history: As per history of present illness and as reviewed below otherwise noncontributory. Social history: No reported history of drug or alcohol abuse. Family history: As per history of present illness and as reviewed below otherwise noncontributory. Physical exam: HEENT: Atraumatic, normocephalic, pupils reactive, negative for conjunctival pallor or scleral icterus, mucous membranes moist, throat clear, neck supple, nontender, trachea midline. Lungs: Clear to auscultation, breath sounds equal bilaterally, chest nontender. Heart: S1S2, regular, negative for clicks, rubs, or JVD. Abdomen: Soft, nondistended, nontender. Negative for masses or hepatosplenomegaly. Negative for costovertebral tenderness. Pelvis: Right red blood in the vaginal vault no active bleeding or hemorrhage no tears no clots or products of conception Genitourinary: Deferred. Rectal: Deferred. Extremities: Atraumatic, negative for cords or calf pain. Neurovascular unremarkable. Neuro: Awake, alert, oriented. Cranial nerves II through XII unremarkable. Cerebellum unremarkable. Motor and sensory unremarkable throughout. Exam nonfocal. Diagnostics: [CBC CMP ua Hemoglobin stable he 8.0 October 15 8.3 tonight] Pelvic ultrasound Therapeutics: ] Discussed the findings with patient home had desired follow-up with [facility] , hence , I called the [facility] provider conditioning coach Dr. Jerry and she has Agreed to come in and review the ultrasound and redirected from there Impression: Possible retained products of conception [Vaginal bleeding] Definitive disposition and diagnosis as appropriate pending reevaluation and review of above. lower abdomen Pain Score (Numeric/FACES): 1 - Related Data Allergies Allergy/AdvReac Type Severity Reaction Status Date / Time No Known Allergies Allergy Verified 10/25/17 01:27 Home Meds: Home Meds . 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: Musculoskeletal History: Reports: None Psychiatric History: Reports: None - Infectious Disease History Infectious Disease History: Reports: Chicken Pox - Past Surgical History Cardiovascular Surgical History: Reports: None Social & Family History - Family History Family Medical History: Noncontributory Cardiac: Reports: High Cholesterol OBGYN: Reports: Endocrine/Metabolic: Reports: Diabetes, type II Oncologic: Reports: Lung - Tobacco Use Smoking Status *Q: Current Every Day Smoker Years of Tobacco use: 5 Packs/Tins Daily: 1 Used Tobacco, but Quit: No Second Hand Smoke Exposure: No - Alcohol Use Days Per Week of Alcohol Use: 0 - Recreational Drug Use Recreational Drug Use: No Drug Use in Last 12 Months: Yes Recreational Drug Type: Reports: Marijuana/Hashish, Methamphetamine Recreational Drug Use Frequency: Weekly Recreational Drug Last Use: 10/13/17 ED ROS GENERAL - Review of Systems Review Of Systems: ROS reveals no pertinent complaints other than HPI. ED EXAM, GENERAL - Physical Exam Exam: See Below Course - Vital Signs Last Recorded V/S: Last Vital Signs Temp 98.2 F 10/25/17 05:02 Pulse 101 H 10/25/17 06:26 Resp 18 10/25/17 06:26 BP 152/95 H 10/25/17 06:26 Pulse Ox 100 10/25/17 06:26 Orthostatic Blood Pressure [ 138/92 Standing] Orthostatic Blood Pressure [ 135/97 Sitting] Orthostatic Blood Pressure [ 122/89 Supine] - Orders/Labs/Meds Orders: Active Orders 24 hr Category Date Time Status Orthostatic Vital Signs [RC] ASDIRECTED Care 10/25/17 02:42 Active Pelvis Non OB Comp [US] Stat Exams 10/25/17 03:03 Taken UA W/MICROSCOPIC [URIN] Stat Lab 10/25/17 05:32 Ordered Transfuse RBC [Transfuse Red Blood Cells] [COMM] Stat Oth 10/25/17 06:48 Ordered Labs: Laboratory Tests 10/25/17 10/25/17 10/25/17 Range/Units 01:29 01:29 01:29 WBC 11.86 H (4.0-11.0) K/uL RBC 3.02 L (4.30-5.90) M/uL Hgb 8.3 L (12.0-16.0) g/dL Hct 25.6 L (36.0-46.0) % MCV 84.8 (80.0-98.0) fL MCH 27.5 (27.0-32.0) pg MCHC 32.4 (31.0-37.0) g/dL RDW Std Deviation 44.9 (28.0-62.0) fl RDW Coeff of [place] 15 (11.0-15.0) % Plt Count 544 H (150-400) K/uL MPV 8.50 (7.40-12.00) fL Neut % (Auto) 72.3 (48.0-80.0) % Lymph % (Auto) 21.4 (16.0-40.0) % [place] % (Auto) 5.4 (0.0-15.0) % Eos % (Auto) 0.7 (0.0-7.0) % Baso % (Auto) 0.2 (0.0-1.5) % Neut # (Auto) 8.6 H (1.4-5.7) K/uL Lymph # (Auto) 2.5 H (0.6-2.4) K/uL [place] # (Auto) 0.6 (0.0-0.8) K/uL Eos # (Auto) 0.1 (0.0-0.7) K/uL Baso # (Auto) 0.0 (0.0-0.1) K/uL Nucleated RBC % 0.5 /100WBC Nucleated RBCs # 0 K/uL Sodium 140 (136-145) mmol/L Potassium 3.7 (3.5-5.1) mmol/L Chloride 105 (98-107) mmol/L Carbon Dioxide 24.4 (21.0-32.0) mmol/L BUN 17 (7.0-18.0) mg/dL Creatinine 0.7 (0.6-1.0) mg/dL Est Cr Clr Drug Dosing 113.24 mL/min Estimated GFR (MDRD) > 60.0 ml/min Glucose 96 (74-106) mg/dL Calcium 8.9 (8.5-10.1) mg/dL Total Bilirubin 0.4 (0.2-1.0) mg/dL AST 14 L (15-37) U/L ALT 24 (14-63) U/L Alkaline Phosphatase 144 H (46-116) U/L Total Protein 7.4 (6.4-8.2) g/dL Albumin 2.8 L (3.4-5.0) g/dL Globulin 4.6 H (2.0-3.5) g/dL Albumin/Globulin Ratio 0.6 L (1.3-2.8) Blood Type A POSITIVE Antibody Screen NEGATIVE Departure - Departure Time of Disposition: 06:51 Disposition: Refer to Observation Condition: Good Clinical Impression: Vaginal bleeding, abnormal - Discharge Information Referrals: PCP,None [Primary Care Provider] - - My Orders Last 24 Hours: My Active Orders 10/25/17 02:42 Orthostatic Vital Signs [RC] ASDIRECTED 10/25/17 03:03 Pelvis Non OB Comp [US] Stat 10/25/17 05:32 UA W/MICROSCOPIC [URIN] Stat - Assessment/Plan Last 24 Hours: My Active Orders 10/25/17 02:42 Orthostatic Vital Signs [RC] ASDIRECTED 10/25/17 03:03 Pelvis Non OB Comp [US] Stat 10/25/17 05:32 UA W/MICROSCOPIC [URIN] Stat
[2017-10-25 01:58] LABS: CHLORIDE,CL 105 mmol/L (98-107); SODIUM,NA 140 mmol/L (136-145)
--- NOTE | 2017-10-25 06:59 | PCM.PREANE ---
Preanesthetic Assessment - Anesthesia/Transfusion/Family Hx Anesthesia History: Prior Anesthesia Without Reaction (epidurals only) Transfusion History: No Prior Transfusion(s) - Review of Systems General: No Symptoms Pulmonary: No Symptoms Cardiovascular: No Symptoms Gastrointestinal: No Symptoms Neurological: No Symptoms Other: Reports: None - Physical Assessment O2 Sat by Pulse Oximetry: 100 Respiratory Rate: 18 Vital Signs: Last Vital Signs Temp 98.2 F 10/25/17 05:02 Pulse 101 H 10/25/17 06:26 Resp 18 10/25/17 06:26 BP 152/95 H 10/25/17 06:26 Pulse Ox 100 10/25/17 06:26 Orthostatic Blood Pressure [ 138/92 Standing] Orthostatic Blood Pressure [ 135/97 Sitting] Orthostatic Blood Pressure [ 122/89 Supine] Height: 5 ft 7 in Weight: 67 kg ASA Class: 2E Mental Status: Alert & Oriented x3 Airway Class: Mallampati = 2 Dentition: Reports: Normal Dentition Thyro-Mental Finger Breadths: 3 Mouth Opening Finger Breadths: 3 ROM/Head Extension: Full Lungs: Clear to Auscultation, Normal Respiratory Effort Cardiovascular: Regular Rate, Regular Rhythm - Lab Values: Laboratory Last Values WBC 11.86 K/uL (4.0-11.0) H 10/25/17 01:29 RBC 3.02 M/uL (4.30-5.90) L 10/25/17 01:29 Hgb 8.3 g/dL (12.0-16.0) L 10/25/17 01:29 Hct 25.6 % (36.0-46.0) L 10/25/17 01:29 MCV 84.8 fL (80.0-98.0) 10/25/17 01:29 MCH 27.5 pg (27.0-32.0) 10/25/17 01:29 MCHC 32.4 g/dL (31.0-37.0) 10/25/17 01:29 RDW Std Deviation 44.9 fl (28.0-62.0) 10/25/17 01:29 RDW Coeff of Chichi 15 % (11.0-15.0) 10/25/17 01:29 Plt Count 544 K/uL (150-400) H 10/25/17 01:29 MPV 8.50 fL (7.40-12.00) 10/25/17 01: Neut % (Auto) 72.3 % (48.0-80.0) 10/25/17 01: Lymph % (Auto) 21.4 % (16.0-40.0) 10/25/17 01: [place] % (Auto) 5.4 % (0.0-15.0) 10/25/17 01: Eos % (Auto) 0.7 % (0.0-7.0) 10/25/17 01: Baso % (Auto) 0.2 % (0.0-1.5) 10/25/17 01: Neut # (Auto) 8.6 K/uL (1.4-5.7) H 10/25/17 01: Lymph # (Auto) 2.5 K/uL (0.6-2.4) H 10/25/17 01: [place]rick # (Auto) 0.6 K/uL (0.0-0.8) 10/25/17 01: Eos # (Auto) 0.1 K/uL (0.0-0.7) 10/25/17 01: Baso # (Auto) 0.0 K/uL (0.0-0.1) 10/25/17: Nucleated RBC % 0.5 /100WBC 10/25/17 01: Nucleated RBCs # 0 K/uL 10/25/17 01: Sodium 140 mmol/L (136-145) 10/25/17 01: Potassium 3.7 mmol/L (3.5-5.1) 10/25/17: Chloride 105 mmol/L (98-107) 10/25/17 01: Carbon Dioxide 24.4 mmol/L (21.0-32.0) 10/25/17 01: BUN 17 mg/dL (7.0-18.0) 10/25/17: Creatinine 0.7 mg/dL (0.6-1.0) 10/25/17 01: Est Cr Clr Drug Dosing 113.24 mL/min 10/25/17 01: Estimated GFR (MDRD) > 60.0 ml/min 10/25/17 01: Glucose 96 mg/dL (74-106) 10/25/17 01:29 Calcium 8.9 mg/dL (8.5-10.1) 10/25/17 01:29 Total Bilirubin 0.4 mg/dL (0.2-1.0) 10/25/17 01:29 AST 14 U/L (15-37) L 10/25/17 01:29 ALT 24 U/L (14-63) 10/25/17 01:29 Alkaline Phosphatase 144 U/L (46-116) H 10/25/17 01:29 Total Protein 7.4 g/dL (6.4-8.2) 10/25/17 01:29 Albumin 2.8 g/dL (3.4-5.0) L 10/25/17 01:29 Globulin 4.6 g/dL (2.0-3.5) H 10/25/17 01:29 Albumin/Globulin Ratio 0.6 (1.3-2.8) L 10/25/17 01:29 Blood Type A POSITIVE 10/25/17 01:29 Antibody Screen NEGATIVE 10/25/17 01:29 - Allergies Allergies/Adverse Reactions: Allergies Allergy/AdvReac Type Severity Reaction Status Date / Time No Known Allergies Allergy Verified 10/25/17 01:27 - Acknowledgements Anesthesia Type Planned: General Anesthesia Pt an Appropriate Candidate for the Planned Anesthesia: Yes Alternatives and Risks of Anesthesia Discussed w Pt/Guardian: Yes Pt/Guardian Understands and Agrees with Anesthesia Plan: Yes PreAnesthesia Questionnaire - Past Health History Medical/Surgical History: Denies Medical/Surgical History HEENT History: Reports: None Cardiovascular History: Reports: None Respiratory History: Reports: None Gastrointestinal History: Reports: GERD Genitourinary History: Reports: None 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): Musculoskeletal History: Reports: None Neurological History: Reports: None Psychiatric History: Reports: None Endocrine/Metabolic History: Reports: None Hematologic History: Reports: Anemia Immunologic History: Reports: None Oncologic (Cancer) History: Reports: None Dermatologic History: Reports: None - Infectious Disease History Infectious Disease History: Reports: Chicken Pox - Past Surgical History Cardiovascular Surgical History: Reports: None - SUBSTANCE USE Smoking Status *Q: Current Every Day Smoker Tobacco Use Within Last Twelve Months: Cigarettes Second Hand Smoke Exposure: No Days Per Week of Alcohol Use: 0 Recreational Drug Use History: Yes Recreational Drug Type: Reports: Marijuana/Hashish, Methamphetamine Recreational Drug Last Use: 10/13/17 - HOME MEDS Home Medications: Home Meds . [No Known Home Meds] 08/11/14 [History]
--- NOTE | 2017-10-25 07:08 | PCM.HP ---
H&P History of Present Illness - General Date of Service: 10/25/17 Admit Problem/Dx: Admission Diagnosis/Problem Admission Diagnosis/Problem bleeding secondary to Retained products of conception Source of Information: Patient History Limitations: Reports: No Limitations - History of Present Illness Initial Comments - Free Text/Narative: 31 yo P5 recently PPD 10 delivered on . She is here complaining of vaginal bleeding which has not reduced in intensity since delivery. she uses about 5 pads a day and it is heavy soaked , she also complains of dizziness and fatigue. Patient was a patient of Dr Junior however she had very poor care , she attended clinic only once. During delivery , manual removal of placenta was done because of cord avulsion. She has a hx of drug use and has a positive utox screen. She denies malodourous vaginal discharge and abdominal pain or fever Onset of Symptoms: Reports: Gradual lower abdomen Pain Score (Numeric/FACES): 1 - Related Data Allergies/Adverse Reactions: Allergies Allergy/AdvReac Type Severity Reaction Status Date / Time No Known Allergies Allergy Verified 10/25/17 01:27 Home Medications: Home Meds . [No Known Home Meds] 08/11/14 [History] Past Medical History - Past Health History Medical/Surgical History: Denies Medical/Surgical History HEENT History: Reports: None Cardiovascular History: Reports: None Respiratory History: Reports: None Gastrointestinal History: Reports: GERD Genitourinary History: Reports: None [employer] History: Reports: Musculoskeletal History: Reports: None Neurological History: Reports: None Psychiatric History: Reports: None Endocrine/Metabolic History: Reports: None Hematologic History: Reports: Anemia Immunologic History: Reports: None Oncologic (Cancer) History: Reports: None Dermatologic History: Reports: None - Infectious Disease History Infectious Disease History: Reports: Chicken Pox - Past Surgical History Cardiovascular Surgical History: Reports: None Social & Family History - Family History Family Medical History: Noncontributory Cardiac: Reports: High Cholesterol OBGYN: Reports: Endocrine/Metabolic: Reports: Diabetes, type II Oncologic: Reports: Lung - Tobacco Use Smoking Status *Q: Current Every Day Smoker Years of Tobacco use: 5 Packs/Tins Daily: 1 Used Tobacco, but Quit: No Second Hand Smoke Exposure: No - Caffeine Use Caffeine Use: Reports: None - Alcohol Use Days Per Week of Alcohol Use: 0 - Recreational Drug Use Recreational Drug Use: Yes Drug Use in Last 12 Months: Yes Recreational Drug Type: Reports: Marijuana/Hashish, Methamphetamine Recreational Drug Use Frequency: Weekly Recreational Drug Last Use: 10/13/17 H&P Review of Systems - Review of Systems: Review Of Systems: See Below General: Reports: No Symptoms HEENT: Reports: No Symptoms Pulmonary: Reports: No Symptoms Cardiovascular: Reports: No Symptoms Gastrointestinal: Reports: No Symptoms Genitourinary: Reports: No Symptoms, Other (vaginal bleeding ) Musculoskeletal: Reports: No Symptoms Skin: Reports: No Symptoms Psychiatric: Reports: No Symptoms Neurological: Reports: No Symptoms Hematologic/Lymphatic: Reports: No Symptoms Immunologic: Reports: No Symptoms Exam - Exam Exam: See Below - Vital Signs Vital Signs: Last Vital Signs Temp 36.8 C 10/25/17 05:02 Pulse 101 H 10/25/17 06:26 Resp 18 10/25/17 06:58 BP 152/95 H 10/25/17 06:26 Pulse Ox 100 10/25/17 06:58 Orthostatic Blood Pressure [ 138/92 Standing] Orthostatic Blood Pressure [ 135/97 Sitting] Orthostatic Blood Pressure [ 122/89 Supine] Weight: 67 kg - Exam Quality Assessment: Other (none) General: Alert, Oriented HEENT: Conjunctiva Clear Neck: Supple Lungs: Clear to Auscultation Cardiovascular: Regular Rate, Regular Rhythm GI/Abdominal Exam: Normal Bowel Sounds (Female) Exam: Other (Uterus 18 weeks sized , large amount of blood in the posterior fornix , cervix closed , no uterine tenderness ) Rectal (Female) Exam: Normal Exam Back Exam: Normal Inspection Extremities: Normal Inspection Skin: Warm Neurological: Cranial Nerves Intact Neuro Extensive - Mental Status: Alert, Oriented x3 Neuro Extensive - Motor, Sensory, Reflexes: CN II-XII Intact Psychiatric: Alert, Anxious, Other (crying excessively ) Physical Exam Comments:: as above - Patient Data Lab Results Last 24 hrs: Laboratory Results - last 24 hr 10/25/17 10/25/17 10/25/17 Range/Units 01:29 01:29 01:29 WBC 11.86 H (4.0-11.0) K/uL RBC 3.02 L (4.30-5.90) M/uL Hgb 8.3 L (12.0-16.0) g/dL Hct 25.6 L (36.0-46.0) % MCV 84.8 (80.0-98.0) fL MCH 27.5 (27.0-32.0) pg MCHC 32.4 (31.0-37.0) g/dL RDW Std Deviation 44.9 (28.0-62.0) fl RDW Coeff of Chichi 15 (11.0-15.0) % Plt Count 544 H (150-400) K/uL MPV 8.50 (7.40-12.00) fL Neut % (Auto) 72.3 (48.0-80.0) % Lymph % (Auto) 21.4 (16.0-40.0) % [place] % (Auto) 5.4 (0.0-15.0) % Eos % (Auto) 0.7 (0.0-7.0) % Baso % (Auto) 0.2 (0.0-1.5) % Neut # (Auto) 8.6 H (1.4-5.7) K/uL Lymph # (Auto) 2.5 H (0.6-2.4) K/uL [place] # (Auto) 0.6 (0.0-0.8) K/uL Eos # (Auto) 0.1 (0.0-0.7) K/uL Baso # (Auto) 0.0 (0.0-0.1) K/uL Nucleated RBC % 0.5 /100WBC Nucleated RBCs # 0 K/uL Sodium 140 (136-145) mmol/L Potassium 3.7 (3.5-5.1) mmol/L Chloride 105 (98-107) mmol/L Carbon Dioxide 24.4 (21.0-32.0) mmol/L BUN 17 (7.0-18.0) mg/dL Creatinine 0.7 (0.6-1.0) mg/dL Est Cr Clr Drug Dosing 113.24 mL/min Estimated GFR (MDRD) > 60.0 ml/min Glucose 96 (74-106) mg/dL Calcium 8.9 (8.5-10.1) mg/dL Total Bilirubin 0.4 (0.2-1.0) mg/dL AST 14 L (15-37) U/L ALT 24 (14-63) U/L Alkaline Phosphatase 144 H (46-116) U/L Total Protein 7.4 (6.4-8.2) g/dL Albumin 2.8 L (3.4-5.0) g/dL Globulin 4.6 H (2.0-3.5) g/dL Albumin/Globulin Ratio 0.6 L (1.3-2.8) Blood Type A POSITIVE Antibody Screen NEGATIVE Result Diagrams: 10/25/17 01:29 10/25/17 01:29 *Q Meaningful Use (ADM) - VTE *Q VTE Criteria *Q: none - VTE Risk Assess *Q Each Risk Factor Represents 1 Point: None Total Score 1 Point Risk Factors: 0 - Stroke *Q Stroke Criteria *Q: - AMI *Q AMI Criteria *Q: - Problem List (1) Retained products of conception w/o hemorrhage but w other compl SNOMED Code(s): 803767659 ICD Code: O73.1 - RETAINED PORTIONS OF PLACENTA AND MEMBRANES, W/O HEMORRHAGE Status: Acute Current Visit: Yes Problem List Initiated/Reviewed/Updated: Yes Orders Last 24hrs: Active Orders 24 hr Category Date Time Status Admission Status [Patient Status] [ADT] Routine ADT 10/25/17 06:52 Active Orthostatic Vital Signs [RC] ASDIRECTED Care 10/25/17 02:42 Active Pelvis Non OB Comp [US] Stat Exams 10/25/17 03:03 Taken UA W/MICROSCOPIC [URIN] Stat Lab 10/25/17 05:32 Ordered Transfuse RBC [Transfuse Red Blood Cells] [COMM] Stat Oth 10/25/17 06:48 Ordered Assessment/Plan Comment:: Ultrasound done consistent with retained POC H/H on discharge - 8.0/24.0 today 8/3/25.6 , however starting H/H - 10.1/30.3 Imp 31 yo P5 s/p vaginal delivery with retained POC and excessive bleeding Stable H/H from post delivery - symptomatic Plan -Dilatation and Currettage Patient informed that based on clinical exam and ultrasound finding , i recommend uterine evacuation. she was explained the risk of infection bleeding and damage to surrounding structures ( uterus ,bladder , ureter , bowels) , alternative include medical management and conservative which is not recommended. She was allowed to ask questio - Unasyn 3 g stat and flagyl 500mg stat - Type and cross 1 UPRBC - informed patient that if she feels dizzness and fatigue , although her vital signs are stable , i recommend transfusion. she says she is unable to make this decision , but afterward declined blood transfusion. i encouraged iron and continued vitamins to help build her hemoglobin. if she continue to have symptoms she should return to the hospital
[2017-10-25] MEDS ORDERED: Ondansetron 4 MG/2 ML SDV ONE (07:19)
[2017-10-25] MEDS ORDERED: fentaNYL 250 MCG/5 ML SDV ONE (07:19)
[2017-10-25] MEDS ORDERED: Lidocaine 2% 5 ML SDV ONE (07:19)
[2017-10-25] MEDS ORDERED: Midazolam 1 MG/ML 2 ML SDV ONE (07:19)
[2017-10-25] MEDS ORDERED: Rocuronium 10 MG/ML 10 ML Syringe ONE (07:19)
[2017-10-25] MEDS ORDERED: Succinylcholine/Normal Saline 200 MG/10 ML Syringe ONE (07:19)
[2017-10-25] MEDS ORDERED: Propofol 200 MG/20 ML SDV ONE (07:19)
[2017-10-25] MEDS ORDERED: metroNIDAZOLE/Normal Saline 500 MG in Premix Bag 1 BAG IV ONE (07:21)
[2017-10-25] MEDS ORDERED: Ampicillin/Sulbactam Na 3 GM in Sodium Chloride 0.9% 100 ML IV ONE (07:21)
[2017-10-25] MEDS ORDERED: ePHEDrine 50 MG/ML SDV ONE (08:05)
[2017-10-25] MEDS ORDERED: Phenylephrine/Normal Saline 100 MCG/ML 10 ML Syringe ONE (08:08)
[2017-10-25] MEDS ORDERED: Oxytocin 10 Units/1 ML SDV ONE (08:24)
--- NOTE | 2017-10-25 09:14 | PCM.OPNOTE ---
- General Post-Op/Procedure Note Date of Surgery/Procedure: 10/25/17 Operative Procedure(s): Suction currettage Findings: EUA showed 18week sized anteverted procedure. Suction curettage and gentle sharp curettage yielded moderate amount of clots and production of conceptions with membranes visible. EUA post currettage 14 week sized uterus . Hemostasis noted after the procedure. 20mu of pitocin given during procedure Unasyn 3 gm and Flagyl 500mg given , 1 UPRBC given , BP during procedure 70 -90s /40 -50s's HR: 70s. Pre Op Diagnosis: Retained products of conception Post-Op Diagnosis: same Anesthesia Technique: MAC Primary Surgeon: Phong Palacios Pathology: Product of conception Fluid Replacement, Intraop: 1,000 Complications: None Condition: Stable
[2017-10-25] MEDS ORDERED: Lactated Ringers 1,000 ML IV SCH (09:15)
[2017-10-25] MEDS ORDERED: Ketorolac 15 MG/ML SDV IM PRN (09:15)
--- NOTE | 2017-10-25 09:26 | PCM.POSTAN ---
POST ANESTHESIA ASSESSMENT - MENTAL STATUS Mental Status: Alert, Oriented - RESPIRATORY Respiratory Status: Respiratory Rate WNL, Airway Patent, O2 Saturation Stable - CARDIOVASCULAR CV Status: Pulse Rate WNL, Blood Pressure Stable - GASTROINTESTINAL GI Status: No Symptoms - POST OP HYDRATION Hydration Status: Adequate & Stable
--- NOTE | 2017-10-25 11:11 | PCM.SN ---
- Free Text/Narrative Note: Patient seen at bedside denies any complains. Bleeding is reduced. VSS; 119/77 , HR; 59 Exam; General; NAD Chest: CTA BL Pelvic; 12 week sized , no bleeding noted Plan D/C home on Augmentin 875mg bid X 5 days and flagyl 500mg bid X 5 days Bleeding and fever precautions given
[2017-10-25] MEDS ORDERED: Amoxicillin/Clavulanate K 875-125 MG Tab PO ONE (12:00)
[2017-10-25] MEDS ORDERED: metroNIDAZOLE 250 MG Tab PO ONE (12:00)
[2017-10-25 15:04] VITALS: BP 112/66
--- NOTE | 2017-10-25 16:25 | OR ---
DATE OF PROCEDURE: 10/25/2017 SURGEON: MAYURI RODRIGUEZ PROCEDURE: Dilatation and Currettage PREOPERATIVE DIAGNOSIS: 31yo P5, day 10 delivered on 10/17 with bleeding and retained products of conception on ultrasound. POSTOPERATIVE DIAGNOSIS: Retained products of conception. ESTIMATED BLOOD LOSS: 200 mL. ANESTHESIA: General. IVF: 1000 LR and 1UPRBC PATHOLOGY: Product of conception HISTORY: The patient is a 31-year-old, P5, recently , PPD10, who was complaining of vaginal bleeding which has increased in intensity since delivery. She was using about 5 pads a day, which was heavily soaked. She was complaining of dizziness and fatigue. She is patient of Dr. Junior who had only one care. The patient also has a history of a positive U-tox for marijuana and methamphetamine. The patient was evaluated and noted to have tyrxhbna-ft-jahzo amount of blood in the posterior fornix. Uterus was noted to be 18 week size. She had an ultrasound that confirmed retained products. As a result, patient was counseled for dilation and curettage. FINDINGS: A 18-week size anteverted uterus. The uterine os was opened. Gentle sharp curettage were done and then suction curettage was also done. she had moderate amount of products of conception was retrieved. EUA post was a 14 week-sized uterus. Hemostasis was noted. 20 milliunits of Pitocin were given during the procedure. The patient was given Unasyn 3g and Flagyl 500 mg. The patient's BP during procedure within 70 to 90s over 40s to 50, heart rate was 70. DESCRIPTION OF PROCEDURE: The patient was taken to the operating room, where general anesthesia was performed without difficulty. The patient was placed in dorsal lithotomy position with Jax stirrups. Examination under anesthesia revealed the above and a 18 week-sized anteverted uterus. A gentle sharp curettage was done, and product of conception followed by suction currettage with 11mm straight suction. Finally gentle sharp currettage was done and all quadrants of the uterus was noted to be gritty. Hemostasis was noted . All instrument and pad counts were correct x2. Patient was taken to the recovery room in stable condition CATHY BEAULIEU /[id number] [facility]
--- NOTE | 2017-10-25 16:52 | PCM48HPAN ---
Post Anesthesia Note - EVALUATION WITHIN 48HRS OF ANESTHETIC Vital Signs in Normal Range: Yes Patient Participated in Evaluation: Yes Respiratory Function Stable: Yes Airway Patent: Yes Cardiovascular Function Stable: Yes Hydration Status Stable: Yes Pain Control Satisfactory: Yes Nausea and Vomiting Control Satisfactory: Yes Mental Status Recovered: Yes Resp Rate: 12
--- NOTE | 2017-10-27 05:50 | US ---
EXAM DATE: 10/25/17 PATIENT'S AGE: 31 Patient: JESSICA MORILLO Facility: [place], [place] Site . Site : 1985 Study: US Pelvis -10/25/2017 4:31:33 AM Ordering Physician: Oj Carmen Final Report: INDICATION: Pain. Heavy bleeding. Question retained products conception. Ten days . FINDINGS: Transabdominal pelvic ultrasound was performed. The uterus measures 15.2 x 6.8 x 11.0 cm. The endometrial stripe appears thickened and heterogeneous with fluid in it measuring up to 4.8 cm. The right ovary measures 4.2 x 1.5 x 2.5 cm. The left ovary measures 3.9 x 1.3 x 2.3 cm. The ovaries are unremarkable. There is no free fluid the pelvis. IMPRESSION: Thickened heterogeneous appearing endometrial stripe with fluid. This would be worrisome for retained products of conception. Enlarged uterus consistent with patient`s recent gravid state. Dictated by Percy Hayden MD @ 10/25/2017 5:13:45 AM Dictated by: Percy Hayden MD @ 10/25/2017 05:14:09 (Electronic Signature) Report Signed by Proxy. RUBY
--- NOTE | 2017-10-27 05:56 | US ---
EXAM DATE: 10/25/17 PATIENT'S AGE: 31 Patient: JESSICA MORILLO Facility: [place], [place] Site . Site : 1985 Study: US Pelvis -10/25/2017 12:03:08 PM Ordering Physician: Philip Darling Final Report: INDICATION: Post D&C. bleeding. TECHNIQUE: Ultrasound pelvis transabdominal and transvaginal for better assessment or to better visualize the endometrium. COMPARISON: October 25, 2017. FINDINGS: Uterus: 15 x 11 x 7 cm. Normal echotexture of the myometrium. No masses. Endometrium: Transvaginal imaging was performed to better evaluate the endometrium. 40 mm in thickness. Small to moderate amount of heterogeneous fluid is in the endometrial canal. No sign of abnormal vascularity within the endometrium. Cul-de-sac: No significant free fluid. IMPRESSION: Small to moderate amount of heterogeneous endometrial fluid consistent with blood products. No sign of abnormal vascularity to suggest retained products of conception. Dictated by Carloz Reed MD @ Oct 25 2017 2:53PM (Electronic Signature) Report Signed by Proxy. RUBY
--- NOTE | 2017-10-27 05:57 | US ---
EXAM DATE: 10/25/17 PATIENT'S AGE: 31 Patient: JESSICA MORILLO Facility: [place], [place] Site . Site : 1985 Study: US Pelvis -10/25/2017 12:03:08 PM Ordering Physician: Philip Darling Final Report: INDICATION: Post D&C. bleeding. TECHNIQUE: Ultrasound pelvis transabdominal and transvaginal for better assessment or to better visualize the endometrium. COMPARISON: October 25, 2017. FINDINGS: Uterus: 15 x 11 x 7 cm. Normal echotexture of the myometrium. No masses. Endometrium: Transvaginal imaging was performed to better evaluate the endometrium. 40 mm in thickness. Small to moderate amount of heterogeneous fluid is in the endometrial canal. No sign of abnormal vascularity within the endometrium. Cul-de-sac: No significant free fluid. IMPRESSION: Small to moderate amount of heterogeneous endometrial fluid consistent with blood products. No sign of abnormal vascularity to suggest retained products of conception. Dictated by Carloz Reed MD @ Oct 25 2017 2:53PM (Electronic Signature) Report Signed by Proxy. RUBY
== END 2017-10-25 14:45 | disposition home or self-care (01) ==
LOC: MW.ED 01:11 → MW.SDS 06:48 → UNDOADMOB 08:21 → MW.MS 08:21 → MW.SDS 14:45 → UNDODISOB 14:45
PROVIDERS: ATTEND Obstetrics & Gynecology
DX: O72.2 Delayed and secondary postpartum hemorrhage (principal); O99.335 Smoking (tobacco) complicating the puerperium; O99.63 Diseases of the digestive system complicating the puerperium; K21.9 Gastro-esophageal reflux disease without esophagitis; F17.210 Nicotine dependence, cigarettes, uncomplicated
CPT/HCPCS: 36415; 36430; 59160; 76830; 76856; 76857; 80053; 81001; 85025; 85027; 86850; 86900; 86901; 86920; 86921; 86922; 88305; 99285; A9270; J2250; J2405; J2590; J3010; P9016; 00940; J2704

== ENCOUNTER 2018-01-30 20:43 | Emergency (ER) | payer MEDICAID, OTHER ==
--- NOTE | 2018-01-30 21:08 | EDM.PDOC ---
ED HPI GENERAL MEDICAL PROBLEM - General Chief Complaint: Cardiovascular Problem Stated Complaint: HYPERTENSION Time Seen by Provider: 01/30/18 21:07 Source of Information: Reports: Patient, Old Records, Police - History of Present Illness INITIAL COMMENTS - FREE TEXT/NARRATIVE: HISTORY AND PHYSICAL: History of present illness: [ Patient presents from the senior care for medical screening Preliminary or performing blood pressure checks at the senior care today her blood pressure is elevated 140s over 100, the nurse at the senior care recommended she come in for a check at the ER. Patient is asymptomatic no fever nausea vomiting chills sweats no chest pain shortness breath headache dizziness palpitation no bowel or urine symptoms No history of hypertension or medications ] Review of systems: As per history of present illness and below otherwise all systems reviewed and negative. Past medical history: As per history of present illness and as reviewed below otherwise noncontributory. Surgical history: As per history of present illness and as reviewed below otherwise noncontributory. Social history: No reported history of drug or alcohol abuse. Family history: As per history of present illness and as reviewed below otherwise noncontributory. Physical exam: HEENT: Atraumatic, normocephalic, pupils reactive, negative for conjunctival pallor or scleral icterus, mucous membranes moist, throat clear, neck supple, nontender, trachea midline. Lungs: Clear to auscultation, breath sounds equal bilaterally, chest nontender. Heart: S1S2, regular, negative for clicks, rubs, or JVD. Abdomen: Soft, nondistended, nontender. Negative for masses or hepatosplenomegaly. Negative for costovertebral tenderness. Pelvis: Stable nontender. Genitourinary: Deferred. Rectal: Deferred. Extremities: Atraumatic, negative for cords or calf pain. Neurovascular unremarkable. Neuro: Awake, alert, oriented. Cranial nerves II through XII unremarkable. Cerebellum unremarkable. Motor and sensory unremarkable throughout. Exam nonfocal. Diagnostics: [CBC CMP UA ] Therapeutics: [Fluid hydration techniques discussed Recheck blood pressure randomly] Impression: [Elevated blood pressure] Definitive disposition and diagnosis as appropriate pending reevaluation and review of above. - Related Data Allergies Allergy/AdvReac Type Severity Reaction Status Date / Time No Known Allergies Allergy Verified 01/30/18 21:21 Home Meds: Home Meds . 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: Musculoskeletal History: Reports: None Neurological History: Reports: None Psychiatric History: Reports: None Endocrine/Metabolic History: Reports: None Hematologic History: Reports: Anemia Immunologic History: Reports: None Oncologic (Cancer) History: Reports: None Dermatologic History: Reports: None - Infectious Disease History Infectious Disease History: Reports: Chicken Pox - Past Surgical History Cardiovascular Surgical History: Reports: None Social & Family History - Family History Family Medical History: Noncontributory Cardiac: Reports: High Cholesterol OBGYN: Reports: Endocrine/Metabolic: Reports: Diabetes, type II Oncologic: Reports: Lung - Caffeine Use Caffeine Use: Reports: None ED ROS GENERAL - Review of Systems Review Of Systems: See Below ED EXAM, GENERAL - Physical Exam Exam: See Below Course - Vital Signs Last Recorded V/S: Last Vital Signs Temp 97.7 F 01/30/18 21:00 Pulse 78 01/30/18 21:00 Resp 16 01/30/18 21:00 BP 144/104 H 01/30/18 21:00 Pulse Ox 100 01/30/18 21:00 - Orders/Labs/Meds Orders: Active Orders 24 hr Category Date Time Status HCG QUALITATIVE,URINE [URCHEM] Stat Lab 01/30/18 21:14 Ordered UA W/MICROSCOPIC [URIN] Stat Lab 01/30/18 21:14 Ordered Labs: Laboratory Tests 01/30/18 01/30/18 01/30/18 Range/Units 21:12 21:12 21:14 WBC 7.30 (4.0-11.0) K/uL RBC 4.78 (4.30-5.90) M/uL Hgb 12.1 (12.0-16.0) g/dL Hct 38.0 (36.0-46.0) % MCV 79.5 L (80.0-98.0) fL MCH 25.3 L (27.0-32.0) pg MCHC 31.8 (31.0-37.0) g/dL RDW Std Deviation 48.7 (28.0-62.0) fl RDW Coeff of [place] 17 H (11.0-15.0) % Plt Count 256 (150-400) K/uL MPV 9.30 (7.40-12.00) fL Neut % (Auto) 57.7 (48.0-80.0) % Lymph % (Auto) 33.3 (16.0-40.0) % [place] % (Auto) 7.7 (0.0-15.0) % Eos % (Auto) 1.0 (0.0-7.0) % Baso % (Auto) 0.3 (0.0-1.5) % Neut # (Auto) 4.2 (1.4-5.7) K/uL Lymph # (Auto) 2.4 (0.6-2.4) K/uL [place] # (Auto) 0.6 (0.0-0.8) K/uL Eos # (Auto) 0.1 (0.0-0.7) K/uL Baso # (Auto) 0.0 (0.0-0.1) K/uL Nucleated RBC % 0.0 /100WBC Nucleated RBCs # 0 K/uL Sodium 140 (136-145) mmol/L Potassium 3.5 (3.5-5.1) mmol/L Chloride 103 (98-107) mmol/L Carbon Dioxide 29.7 (21.0-32.0) mmol/L BUN 12 (7.0-18.0) mg/dL Creatinine 0.9 (0.6-1.0) mg/dL Est Cr Clr Drug Dosing TNP Estimated GFR (MDRD) > 60.0 ml/min Glucose 104 (74-106) mg/dL Calcium 9.1 (8.5-10.1) mg/dL Total Bilirubin 0.7 (0.2-1.0) mg/dL AST 10 L (15-37) IU/L ALT 15 (14-63) IU/L Alkaline Phosphatase 65 (46-116) U/L Total Protein 7.2 (6.4-8.2) g/dL Albumin 3.7 (3.4-5.0) g/dL Globulin 3.5 (2.0-3.5) g/dL Albumin/Globulin Ratio 1.1 L (1.3-2.8) Urine Color YELLOW Urine Appearance CLEAR Urine pH 7.0 (5.0-8.0) Ur Specific [place] 1.010 (1.001-1.035) Urine Protein NEGATIVE (NEGATIVE) mg/dL Urine Glucose (UA) NEGATIVE (NEGATIVE) mg/dL Urine Ketones NEGATIVE (NEGATIVE) mg/dL Urine Occult Blood NEGATIVE (NEGATIVE) Urine Nitrite NEGATIVE (NEGATIVE) Urine Bilirubin NEGATIVE (NEGATIVE) Urine Urobilinogen 0.2 (<2.0) EU/dL Ur Leukocyte Esterase NEGATIVE (NEGATIVE) Urine RBC 0-2 (0-2/HPF) Urine WBC 0-1 (0-5/HPF) Ur Epithelial Cells FEW (NONE-FEW) Urine Bacteria FEW (NEGATIVE) Urine HCG, Qual (NEGATIVE) 01/30/18 Range/Units 21:14 WBC (4.0-11.0) K/uL RBC (4.30-5.90) M/uL Hgb (12.0-16.0) g/dL Hct (36.0-46.0) % MCV (80.0-98.0) fL MCH (27.0-32.0) pg MCHC (31.0-37.0) g/dL RDW Std Deviation (28.0-62.0) fl RDW Coeff of [place] (11.0-15.0) % Plt Count (150-400) K/uL MPV (7.40-12.00) fL Neut % (Auto) (48.0-80.0) % Lymph % (Auto) (16.0-40.0) % [place] % (Auto) (0.0-15.0) % Eos % (Auto) (0.0-7.0) % Baso % (Auto) (0.0-1.5) % Neut # (Auto) (1.4-5.7) K/uL Lymph # (Auto) (0.6-2.4) K/uL [place] # (Auto) (0.0-0.8) K/uL Eos # (Auto) (0.0-0.7) K/uL Baso # (Auto) (0.0-0.1) K/uL Nucleated RBC % /100WBC Nucleated RBCs # K/uL Sodium (136-145) mmol/L Potassium (3.5-5.1) mmol/L Chloride (98-107) mmol/L Carbon Dioxide (21.0-32.0) mmol/L BUN (7.0-18.0) mg/dL Creatinine (0.6-1.0) mg/dL Est Cr Clr Drug Dosing Estimated GFR (MDRD) ml/min Glucose (74-106) mg/dL Calcium (8.5-10.1) mg/dL Total Bilirubin (0.2-1.0) mg/dL AST (15-37) IU/L ALT (14-63) IU/L Alkaline Phosphatase (46-116) U/L Total Protein (6.4-8.2) g/dL Albumin (3.4-5.0) g/dL Globulin (2.0-3.5) g/dL Albumin/Globulin Ratio (1.3-2.8) Urine Color Urine Appearance Urine pH (5.0-8.0) Ur Specific [place] (1.001-1.035) Urine Protein (NEGATIVE) mg/dL Urine Glucose (UA) (NEGATIVE) mg/dL Urine Ketones (NEGATIVE) mg/dL Urine Occult Blood (NEGATIVE) Urine Nitrite (NEGATIVE) Urine Bilirubin (NEGATIVE) Urine Urobilinogen (<2.0) EU/dL Ur Leukocyte Esterase (NEGATIVE) Urine RBC (0-2/HPF) Urine WBC (0-5/HPF) Ur Epithelial Cells (NONE-FEW) Urine Bacteria (NEGATIVE) Urine HCG, Qual NEGATIVE (NEGATIVE) Departure - Departure Time of Disposition: 22:06 Disposition: Home, Self-Care 01 Condition: Good Clinical Impression: Elevated blood pressure reading Referrals: PCP,None [Primary Care Provider] - Forms: ED Department Discharge Additional Instructions: The following information is given to patients seen in the emergency department who are being discharged to home. This information is to outline your options for follow-up care. We provide all patients seen in our emergency department with a follow-up referral. The need for follow-up, as well as the timing and circumstances, are variable depending upon the specifics of your emergency department visit. If you don't have a primary care physician on staff, we will provide you with a referral. We always advise you to contact your personal physician following an emergency department visit to inform them of the circumstance of the visit and for follow-up with them and/or the need for any referrals to a consulting specialist. The emergency department will also refer you to a specialist when appropriate. This referral assures that you have the opportunity for follow-up care with a specialist. All of these measure are taken in an effort to provide you with optimal care, which includes your follow-up. Under all circumstances we always encourage you to contact your private physician who remains a resource for coordinating your care. When calling for follow-up care, please make the office aware that this follow-up is from your recent emergency room visit. If for any reason you are refused follow-up, please contact the [facility] emergency department at and asked to speak to the emergency department charge nurse. - My Orders Last 24 Hours: My Active Orders 01/30/18 21:14 HCG QUALITATIVE,URINE [URCHEM] Stat UA W/MICROSCOPIC [URIN] Stat - Assessment/Plan Last 24 Hours: My Active Orders 01/30/18 21:14 HCG QUALITATIVE,URINE [URCHEM] Stat UA W/MICROSCOPIC [URIN] Stat
[2018-01-30 21:43] LABS: CHLORIDE,CL 103 mmol/L (98-107); SODIUM,NA 140 mmol/L (136-145)
[2018-01-30 22:33] VITALS: BP 142/98
== END 2018-01-30 22:15 | disposition home or self-care (01) ==
LOC: MW.ED 20:43
DX: I10 Essential (primary) hypertension (principal); K21.9 Gastro-esophageal reflux disease without esophagitis; D64.9 Anemia, unspecified
CPT/HCPCS: 36415; 80053; 81001; 81025; 85025; 99283

== ENCOUNTER 2018-03-02 21:07 | Emergency (ER) | payer SELFPAY ==
[2018-03-02] MEDS ORDERED: Ondansetron 4 MG Tab.DIS PO ONE ×2 (21:18→21:52)
--- NOTE | 2018-03-02 21:22 | EDM.PDOC ---
<Wyatt Baez - Last Filed: 03/02/18 21:54> ED HPI GENERAL MEDICAL PROBLEM - General Chief Complaint: Gastrointestinal Problem Stated Complaint: VOMITING Time Seen by Provider: 03/02/18 21:25 Source of Information: Reports: Patient History Limitations: Reports: No Limitations - History of Present Illness INITIAL COMMENTS - FREE TEXT/NARRATIVE: HISTORY AND PHYSICAL: History of present illness: [Mariaa is a 32-year-old female here for vomiting. She states that she ate at a [employer] a few hours ago. In the last hour she has vomited about 6-7 times. She states she has not been able to keep any fluids down in the past hour. She has some upper abdominal cramping before vomiting and feels nauseous. She denies any fevers, chills, diarrhea, hematochezia, melena, hematemesis, chest pain, SOB. ] Review of systems: As per history of present illness and below otherwise all systems reviewed and negative. Past medical history: As per history of present illness and as reviewed below otherwise noncontributory. Surgical history: As per history of present illness and as reviewed below otherwise noncontributory. Social history: No reported history of drug or alcohol abuse. Family history: As per history of present illness and as reviewed below otherwise noncontributory. Physical exam: General: patient lying in bed in no acute distress. HEENT: Atraumatic, normocephalic, pupils reactive, negative for conjunctival pallor or scleral icterus, mucous membranes moist, throat clear, neck supple, nontender, trachea midline. Lungs: Clear to auscultation, breath sounds equal bilaterally, chest nontender. Heart: S1S2, regular, negative for clicks, rubs, or JVD. Abdomen: Soft, nondistended, nontender. Negative for masses or hepatosplenomegaly. Negative for costovertebral tenderness. Extremities: Atraumatic. Neurovascular unremarkable. Neuro: Awake, alert, oriented. Cranial nerves II through XII unremarkable. Cerebellum unremarkable. Motor and sensory unremarkable throughout. Exam nonfocal. Notes: Diagnostics: [UA, urine hcg] Therapeutics: [Zofran 4mg x 2] Impression: [] Plan: [] Definitive disposition and diagnosis as appropriate pending reevaluation and review of above. Abd Cramping Pain Score (Numeric/FACES): 5 - Related Data Allergies Allergy/AdvReac Type Severity Reaction Status Date / Time No Known Allergies Allergy Verified 03/02/18 21:16 Home Meds: Home Meds . 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: Musculoskeletal History: Reports: None Neurological History: Reports: None Psychiatric History: Reports: None Endocrine/Metabolic History: Reports: None Hematologic History: Reports: Anemia Immunologic History: Reports: None Oncologic (Cancer) History: Reports: None Dermatologic History: Reports: None - Infectious Disease History Infectious Disease History: Reports: Chicken Pox - Past Surgical History Cardiovascular Surgical History: Reports: None Social & Family History - Family History Family Medical History: Noncontributory Cardiac: Reports: High Cholesterol OBGYN: Reports: Endocrine/Metabolic: Reports: Diabetes, type II Oncologic: Reports: Lung - Tobacco Use Smoking Status *Q: Current Every Day Smoker Years of Tobacco use: 4 Packs/Tins Daily: 1 - Caffeine Use Caffeine Use: Reports: Coffee - Recreational Drug Use Recreational Drug Use: Yes Drug Use in Last 12 Months: No ED ROS GENERAL - Review of Systems Review Of Systems: ROS reveals no pertinent complaints other than HPI. ED EXAM, GI/ABD - Physical Exam Exam: See Below (see dictation) Course - Vital Signs Last Recorded V/S: Last Vital Signs Temp 36.7 C 03/02/18 21:14 Pulse 88 03/02/18 21:14 Resp 16 03/02/18 21:14 BP 159/106 H 03/02/18 21:14 Pulse Ox 100 03/02/18 21:14 - Orders/Labs/Meds Orders: Active Orders 24 hr Category Date Time Status HCG QUALITATIVE,URINE [URCHEM] Stat Lab 03/02/18 22:35 Ordered UA W/MICROSCOPIC [URIN] Stat Lab 03/02/18 22:35 Ordered Labs: Laboratory Tests 03/02/18 03/02/18 Range/Units 22:35 22:35 Urine Color YELLOW Urine Appearance CLEAR Urine pH 5.5 (5.0-8.0) Ur Specific [place] <= 1.005 (1.001-1.035) Urine Protein NEGATIVE (NEGATIVE) mg/dL Urine Glucose (UA) NEGATIVE (NEGATIVE) mg/dL Urine Ketones NEGATIVE (NEGATIVE) mg/dL Urine Occult Blood LARGE H (NEGATIVE) Urine Nitrite NEGATIVE (NEGATIVE) Urine Bilirubin NEGATIVE (NEGATIVE) Urine Urobilinogen 0.2 (<2.0) EU/dL Ur Leukocyte Esterase NEGATIVE (NEGATIVE) Urine RBC 0-3 (0-2/HPF) Urine WBC 0-2 (0-5/HPF) Ur Epithelial Cells OCCASIONAL (NONE-FEW) Urine Bacteria RARE (NEGATIVE) Urine Mucus LIGHT (NONE-MOD) Urine HCG, Qual NEGATIVE (NEGATIVE) Meds: Medications Discontinued Medications Generic Name Dose Route Start Last Admin Trade Name Freq PRN Reason Stop Dose Admin Ondansetron HCl 4 mg 03/02/18 21:18 03/02/18 21:30 Zofran Odt PO 03/02/18 21:19 4 mg ONETIME ONE Administration Ondansetron HCl 4 mg 03/02/18 21:52 03/02/18 22:30 Zofran Odt PO 03/02/18 21:53 Not Given ONETIME ONE Departure - Departure Disposition: Home, Self-Care 01 Clinical Impression: Vomiting - Discharge Information Referrals: PCP,None [Primary Care Provider] - Forms: ED Department Discharge Additional Instructions: The following information is given to patients seen in the emergency department who are being discharged to home. This information is to outline your options for follow-up care. We provide all patients seen in our emergency department with a follow-up referral. The need for follow-up, as well as the timing and circumstances, are variable depending upon the specifics of your emergency department visit. If you don't have a primary care physician on staff, we will provide you with a referral. We always advise you to contact your personal physician following an emergency department visit to inform them of the circumstance of the visit and for follow-up with them and/or the need for any referrals to a consulting specialist. The emergency department will also refer you to a specialist when appropriate. This referral assures that you have the opportunity for followup care with a specialist. All of these measure are taken in an effort to provide you with optimal care, which includes your followup. Under all circumstances we always encourage you to contact your private physician who remains a resource for coordinating your care. When calling for followup care, please make the office aware that this follow-up is from your recent emergency room visit. If for any reason you are refused follow-up, please contact the [facility] emergency department at and asked to speak to the emergency department charge nurse. [facility] [address] [place] [id number] Follow-up primary medical doctor 1-2 days return as needed as discussed[] <Darrick Cruz - Last Filed: 03/02/18 23:03> Course - Vital Signs Text/Narrative:: Patient emerged from course has been unremarkable she has improvement status post open be discharged and follow-up Departure - Departure Time of Disposition: 23:03 Condition: Good
[2018-03-02 23:21] VITALS: BP 143/102
== END 2018-03-02 23:16 | disposition home or self-care (01) ==
LOC: MW.ED 21:07
DX: R11.2 Nausea with vomiting, unspecified (principal); F17.210 Nicotine dependence, cigarettes, uncomplicated; K21.9 Gastro-esophageal reflux disease without esophagitis
CPT/HCPCS: 81001; 81025; 99284; A9270

== ENCOUNTER 2018-04-28 18:53 | Emergency (ER) | payer SELFPAY ==
--- NOTE | 2018-04-28 19:13 | EDM.PDOC ---
ED HPI GENERAL MEDICAL PROBLEM - General Chief Complaint: Cardiovascular Problem Stated Complaint: HIGH BLOOD PRESURE Time Seen by Provider: 04/28/18 19:07 - History of Present Illness INITIAL COMMENTS - FREE TEXT/NARRATIVE: HISTORY AND PHYSICAL: History of present illness: Patient 32-year-old female sent from the [place] for medical screening exam for elevated blood pressure. Review of systems: As per history of present illness and below otherwise all systems reviewed and negative. Past medical history: As per history of present illness and as reviewed below otherwise noncontributory. Surgical history: As per history of present illness and as reviewed below otherwise noncontributory. Social history: No reported history of drug or alcohol abuse. Family history: As per history of present illness and as reviewed below otherwise noncontributory. Physical exam: HEENT: Atraumatic, normocephalic, pupils reactive, negative for conjunctival pallor or scleral icterus, mucous membranes moist, throat clear, neck supple, nontender, trachea midline. Lungs: Clear to auscultation, breath sounds equal bilaterally, chest nontender. Heart: S1S2, regular, negative for clicks, rubs, or JVD. Abdomen: Soft, nondistended, nontender. Negative for masses or hepatosplenomegaly. Negative for costovertebral tenderness. Pelvis: Stable nontender. Genitourinary: Deferred. Rectal: Deferred. Extremities: Atraumatic, negative for cords or calf pain. Neurovascular unremarkable. Neuro: Awake, alert, oriented. Cranial nerves II through XII unremarkable. Cerebellum unremarkable. Motor and sensory unremarkable throughout. Exam nonfocal. Diagnostics: None Therapeutics: None Impression: #1 medical screening exam #2 medically clear for incarceration Definitive disposition and diagnosis as appropriate pending reevaluation and review of above. - Related Data Allergies Allergy/AdvReac Type Severity Reaction Status Date / Time No Known Allergies Allergy Verified 03/02/18 21:16 Home Meds: Home Meds . 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: Musculoskeletal History: Reports: None Neurological History: Reports: None Psychiatric History: Reports: None Endocrine/Metabolic History: Reports: None Hematologic History: Reports: Anemia Immunologic History: Reports: None Oncologic (Cancer) History: Reports: None Dermatologic History: Reports: None - Infectious Disease History Infectious Disease History: Reports: Chicken Pox - Past Surgical History Cardiovascular Surgical History: Reports: None Social & Family History - Family History Family Medical History: Noncontributory Cardiac: Reports: High Cholesterol OBGYN: Reports: Endocrine/Metabolic: Reports: Diabetes, type II Oncologic: Reports: Lung - Caffeine Use Caffeine Use: Reports: Coffee ED ROS GENERAL - Review of Systems Review Of Systems: ROS reveals no pertinent complaints other than HPI. ED EXAM, GENERAL - Physical Exam Exam: See Below (See dictation) Departure - Departure Time of Disposition: 19:11 Disposition: Home, Self-Care 01 Condition: Good Clinical Impression: Encounter for medical screening examination, Medical clearance for incarceration Referrals: PCP,None [Primary Care Provider] - Additional Instructions: The following information is given to patients seen in the emergency department who are being discharged to home. This information is to outline your options for follow-up care. We provide all patients seen in our emergency department with a follow-up referral. The need for follow-up, as well as the timing and circumstances, are variable depending upon the specifics of your emergency department visit. If you don't have a primary care physician on staff, we will provide you with a referral. We always advise you to contact your personal physician following an emergency department visit to inform them of the circumstance of the visit and for follow-up with them and/or the need for any referrals to a consulting specialist. The emergency department will also refer you to a specialist when appropriate. This referral assures that you have the opportunity for followup care with a specialist. All of these measure are taken in an effort to provide you with optimal care, which includes your followup. Under all circumstances we always encourage you to contact your private physician who remains a resource for coordinating your care. When calling for followup care, please make the office aware that this follow-up is from your recent emergency room visit. If for any reason you are refused follow-up, please contact the [facility] emergency department at and asked to speak to the emergency department charge nurse. Follow-up primary medical doctor for reevaluation and return as needed as discussed
[2018-04-28 19:30] VITALS: BP 135/96
== END 2018-04-28 19:20 | disposition home or self-care (01) ==
LOC: MW.ED 18:53
DX: Z02.89 Encounter for other administrative examinations (principal)
CPT/HCPCS: 99283

== ENCOUNTER 2019-02-22 08:47 | Emergency (ER) | payer MEDICAID ==
[2019-02-22] MEDS ORDERED: Bacitracin Oint 1 GM U/D Packet TOP ONE (09:05)
--- NOTE | 2019-02-22 09:12 | EDM.PDOC ---
ED HPI GENERAL MEDICAL PROBLEM - General Chief Complaint: General Stated Complaint: MEDICAL CLEARANCE Time Seen by Provider: 02/22/19 08:59 Source of Information: Reports: Patient History Limitations: Reports: No Limitations - History of Present Illness INITIAL COMMENTS - FREE TEXT/NARRATIVE: HISTORY AND PHYSICAL: History of present illness: Patient is a 33-year-old female who presents to the emergency room with complaints of an abrasion to her knee. She was running from enforcement when she fell resulting in the abrasion. She is here with law enforcement for medical clearance. She offers no other concerns or complaints. Denies hitting her head or having any loss of consciousness. Patient denies any fever, chills, headache, change in vision, syncope or near syncope. Denies any chest pain, back pain, shortness of breath or cough. Denies any abdominal pain, nausea, vomiting, diarrhea, constipation or dysuria. Has not noted any blood in urine or stool. Patient has been eating and drinking appropriately. Review of systems: As per history of present illness and below otherwise all systems reviewed and negative. Past medical history: As per history of present illness and as reviewed below otherwise noncontributory. Surgical history: As per history of present illness and as reviewed below otherwise noncontributory. Social history: See social history for further information Family history: As per history of present illness and as reviewed below otherwise noncontributory. Physical exam: General: Well-developed and well-nourished 33-year-old female. Alert and oriented. Nontoxic appearing and in no acute distress. Vital signs are stable and have been reviewed by me. HEENT: Atraumatic, normocephalic, pupils equal and reactive bilaterally, negative for conjunctival pallor or scleral icterus, mucous membranes moist, TMs normal bilaterally, throat clear, neck supple, nontender, trachea midline. No drooling or trismus noted. No meningeal signs. No hot potato voice noted. Lungs: Clear to auscultation, breath sounds equal bilaterally, chest nontender. Heart: S1S2, regular rate and rhythm without overt murmur Abdomen: Soft, nondistended, nontender. Negative for masses or hepatosplenomegaly. Negative for costovertebral tenderness. Pelvis: Stable nontender. Genitourinary: Deferred. Rectal: Deferred. Skin: Abrasion to the right knee, otherwise skin is intact, warm, dry. No lesions or rashes noted. Extremities: Nontender with palpation, moves all extremities per self without difficulty or deficits, negative for cords or calf pain. Neurovascular unremarkable. Neuro: Awake, alert, oriented. Cranial nerves II through XII unremarkable. Cerebellum unremarkable. Motor and sensory unremarkable throughout. Exam nonfocal. Notes: Wound care was provided. Nonstick bacitracin dressing over the right knee. She offers no other concerns or complaints at this time. We'll release her into the custody of law enforcement. Supportive care measures were reviewed and discussed. Voices understanding and is agreeable to plan of care. Denies any further questions or concerns at this time. Diagnostics: None Therapeutics: Wound care, bacitracin Prescription: None Impression: Encounter for Medical Screening Abrasions Plan: 1. Keep the wounds clean and dry. Continue to monitor for signs of infection 2. Return to the ED as needed and as discussed. Return to the ED as needed and as discussed. Definitive disposition and diagnosis as appropriate pending reevaluation and review of above. Right Knee Pain Score (Numeric/FACES): 4 - Related Data Allergies Allergy/AdvReac Type Severity Reaction Status Date / Time No Known Allergies Allergy Verified 02/22/19 08:56 Home Meds: Home Meds . [No Known Home Meds] 08/11/14 [History] Past Medical History - Past Health History Medical/Surgical History: Denies Medical/Surgical History HEENT History: Reports: None Cardiovascular History: Reports: None Respiratory History: Reports: None Gastrointestinal History: Reports: None Genitourinary History: Reports: None MEDICAL OFFICE SPECIALIST History: Reports: None Musculoskeletal History: Reports: None Neurological History: Reports: None Psychiatric History: Reports: None Endocrine/Metabolic History: Reports: None Hematologic History: Reports: None Immunologic History: Reports: None Oncologic (Cancer) History: Reports: None Dermatologic History: Reports: None - Infectious Disease History Infectious Disease History: Reports: None - Past Surgical History Head Surgeries/Procedures: Reports: None Cardiovascular Surgical History: Reports: None Female Surgical History: Reports: None Social & Family History - Family History Family Medical History: Noncontributory Cardiac: Reports: High Cholesterol OBGYN: Reports: Endocrine/Metabolic: Reports: Diabetes, type II Oncologic: Reports: Lung - Tobacco Use Smoking Status *Q: Current Every Day Smoker Years of Tobacco use: 7 Packs/Tins Daily: 1 Used Tobacco, but Quit: No Second Hand Smoke Exposure: Yes - Caffeine Use Caffeine Use: Reports: None - Recreational Drug Use Recreational Drug Use: Yes Drug Use in Last 12 Months: Yes Recreational Drug Type: Reports: Marijuana/Hashish, Methamphetamine Recreational Drug Use Frequency: Daily ED ROS GENERAL - Review of Systems Review Of Systems: ROS reveals no pertinent complaints other than HPI. ED EXAM, GENERAL - Physical Exam Exam: See Below (See dictation) Course - Vital Signs Last Recorded V/S: Last Vital Signs Temp 96.2 F 02/22/19 08:57 Pulse 106 H 02/22/19 08:57 Resp 13 02/22/19 08:57 BP 143/104 H 02/22/19 08:57 Pulse Ox 95 02/22/19 08:57 - Orders/Labs/Meds Meds: Medications Discontinued Medications Generic Name Dose Route Start Last Admin Trade Name Deandre PRN Reason Stop Dose Admin Bacitracin 1 dose 02/22/19 09:05 02/22/19 09:11 Bacitracin Oint 1 Gm TOP 02/22/19 09:06 1 dose ONETIME ONE Administration Departure - Departure Time of Disposition: 09:17 Disposition: Home, Self-Care 01 Clinical Impression: Abrasion, Encounter for medical screening examination - Discharge Information Instructions: Medical Screening Exam, Abrasion, [id number] Referrals: PCP,None [Primary Care Provider] - Forms: ED Department Discharge Additional Instructions: The following information is given to patients seen in the emergency department who are being discharged to home. This information is to outline your options for follow-up care. We provide all patients seen in our emergency department with a follow-up referral. The need for follow-up, as well as the timing and circumstances, are variable depending upon the specifics of your emergency department visit. If you don't have a primary care physician on staff, we will provide you with a referral. We always advise you to contact your personal physician following an emergency department visit to inform them of the circumstance of the visit and for follow-up with them and/or the need for any referrals to a consulting specialist. The emergency department will also refer you to a specialist when appropriate. This referral assures that you have the opportunity for follow-up care with a specialist. All of these measure are taken in an effort to provide you with optimal care, which includes your follow-up. Under all circumstances we always encourage you to contact your private physician who remains a resource for coordinating your care. When calling for follow-up care, please make the office aware that this follow-up is from your recent emergency room visit. If for any reason you are refused follow-up, please contact the [facility] Emergency Department at and asked to speak to the emergency department charge nurse. [facility] [address] [place] [id number] [address] 1. Keep the wounds clean and dry. Continue to monitor for signs of infection 2. Return to the ED as needed and as discussed. Return to the ED as needed and as discussed.
[2019-02-22 09:18] VITALS: BP 134/95
== END 2019-02-22 09:18 | disposition home or self-care (01) ==
LOC: MW.ED 08:47
DX: S80.211A Abrasion, right knee, initial encounter (principal); F17.210 Nicotine dependence, cigarettes, uncomplicated; W19.XXXA Unspecified fall, initial encounter
CPT/HCPCS: 99282

== ENCOUNTER 2020-05-21 10:18 | Emergency (ER) | payer MEDICAID ==
[2020-05-21 10:39] VITALS: BP 132/85; PULSE 83
--- NOTE | 2020-05-21 10:41 | EDM.PDOC ---
ED HPI GENERAL MEDICAL PROBLEM - General Chief Complaint: Upper Extremity Injury/Pain Stated Complaint: INJURY TO RT WRIST/FOREARM Time Seen by Provider: 05/21/20 10:30 Source of Information: Reports: Patient History Limitations: Reports: No Limitations - History of Present Illness INITIAL COMMENTS - FREE TEXT/NARRATIVE: 30-year-old female presents with right forearm muscular pain. She was hitting a chisel with her hammer, holding a hammer in her right hand 1 week ago during repetitive hammering. She then started noticing pain to her right proximal forearm muscles, exacerbated with elbow extension, pronation and supination, pain is mild, intermittent, no alleviating factors, radiating. ROS: A 10-point review of systems, other than pertinent positives and negatives as stated per HPI, is otherwise negative Past medical history: No additional pertinent history Past Surgical history: No additional pertinent history Social history: No additional pertinent history Family history: No additional pertinent history PHYSICAL EXAM General: AOx4, GCS = 15, No distress HEENT: dry mucous membrane Neck: supple, no meningismus, no Kernig or Brudzinski Cardiac: S1S2 RRR Respiratory: CTAB, no crackles or rales, no wheezing Abdomen: Soft, nontender, no rebound or guarding, nondistended, no pulsatile mass. Back: nontender Musculoskeletal: NVI distally, tenderness to lateral epicondyle, no bony tenderness to right elbow or wrist. Bounding symmetrical radial pulses. Neuro: No focal deficits, CN 2 - 12 WNL. left arm Pain Score (Numeric/FACES): 4 - Related Data Allergies Allergy/AdvReac Type Severity Reaction Status Date / Time No Known Allergies Allergy Verified 05/21/20 10:35 Home Meds: Home Meds . [No Known Home Meds] 08/11/14 [History] Past Medical History - Past Health History Medical/Surgical History: Denies Medical/Surgical History HEENT History: Reports: None Cardiovascular History: Reports: None Respiratory History: Reports: None Gastrointestinal History: Reports: None Genitourinary History: Reports: None ALARM MECHANIC History: Reports: None Musculoskeletal History: Reports: None Neurological History: Reports: None Psychiatric History: Reports: None Endocrine/Metabolic History: Reports: None Hematologic History: Reports: None Immunologic History: Reports: None Oncologic (Cancer) History: Reports: None Dermatologic History: Reports: None - Infectious Disease History Infectious Disease History: Reports: None - Past Surgical History Head Surgeries/Procedures: Reports: None Cardiovascular Surgical History: Reports: None Female Surgical History: Reports: None Social & Family History - Family History Family Medical History: Noncontributory Cardiac: Reports: High Cholesterol OBGYN: Reports: Endocrine/Metabolic: Reports: Diabetes, type II Oncologic: Reports: Lung - Caffeine Use Caffeine Use: Reports: None Review of Systems - Review of Systems Review Of Systems: See Below (see dictation) ED EXAM, GENERAL - Physical Exam Exam: See Below (see dictation) ED TRAUMA EXTREMITY PROCEDURES - Splinting Right Upper Extremity Pre-Procedure NV Status: Normal Post-Procedure NV Status: Normal Splint Material: Sling Splint Design: Sling Applied & Form Fitted By: Nurse Provider Post-Splint Application NV Check: NV Status Normal, Good Position Complications: No Course - Vital Signs Last Recorded V/S: Last Vital Signs Temp 97.4 F 05/21/20 10:36 Pulse 83 05/21/20 10:36 Resp 17 05/21/20 10:36 BP 132/85 05/21/20 10:36 Pulse Ox 99 05/21/20 10:36 - Re-Assessments/Exams Free Text/Narrative Re-Assessment/Exam: 05/21/20 11:23 After ring application in the ER, the patient improved and is currently stable for discharge. I performed a repeat exam and did not appreciate new abnormal findings. Patient exhibits normal vital signs and has a normal gait on road test. I advised the patient to return to the ER for reevaluation if symptoms worsened, including fever, worsening pain, or any other worrisome symptoms. I instructed the patient to follow up with their PCP within 2-3 days. MEDICAL DECISION MAKING: I reviewed the patients past medical records, lab and radiographic findings. I discussed the case with the patient. My differential diagnosis included: Fracture dislocation, lateral epicondylitis, muscle strain. Mechanism of injury classic for lateral epicondylitis, x-ray did not reveal fracture or dislocation to wrist and elbow, compartments are soft, do not suspect compartment syndrome. Departure - Departure Time of Disposition: 11:24 Disposition: Home, Self-Care 01 Condition: Good Clinical Impression: Lateral epicondylitis - Discharge Information *PRESCRIPTION DRUG MONITORING PROGRAM REVIEWED*: Not Applicable *COPY OF PRESCRIPTION DRUG MONITORING REPORT IN PATIENT [place]: Not Applicable Instructions: Tennis Elbow, [id number], How To Use a Sling, [id number] Referrals: PCP,None [Primary Care Provider] - 3 Days Forms: ED Department Discharge, ED Return to Work/School Form Additional Instructions: The need for follow-up, as well as the timing and circumstances, are variable depending upon the specifics of your emergency department visit. If you don't have a primary care physician on staff, we will provide you with a referral. We always advise you to contact your personal physician following an emergency department visit to inform them of the circumstance of the visit and for follow-up with them and/or the need for any referrals to a consulting specialist. The emergency department will also refer you to a specialist when appropriate. This referral assures that you have the opportunity for follow-up care with a specialist. All of these measure are taken in an effort to provide you with optimal care, which includes your follow-up. Under all circumstances we always encourage you to contact your private physician who remains a resource for coordinating your care. When calling for follow-up care, please make the office aware that this follow-up is from your recent emergency room visit. If for any reason you are refused follow-up, please contact the [facility] Emergency Department at and asked to speak to the emergency department charge nurse. If you do not have a primary care doctor, please follow up with the clinics below within 3-5 days. Eron Ulrich [facility] - Primary Care [address] [place] [id number] [facility] [address] [place] [address] Sepsis Event Note (ED) - Focused Exam Vital Signs: Vital Signs Temp Pulse Resp BP Pulse Ox 05/21/20 10:36 97.4 F 83 17 132/85 99
--- NOTE | 2020-05-21 11:07 | CR ---
Right elbow: 3 views of the right elbow were obtained. Comparison: No prior right elbow study is available. Joint spaces are preserved. No acute fracture, dislocation or other bony abnormality is appreciated. Impression: 1. No abnormality is appreciated on 3 view right elbow study. Diagnostic code #1 This report was dictated in MDT
--- NOTE | 2020-05-21 11:07 | CR ---
Right wrist: 3 views of the right wrist were obtained. Comparison: No previous study. Joint spaces are preserved. No acute fracture, dislocation or other bony abnormality is appreciated. Impression: 1. No eye abnormality is appreciated on 3 view right wrist exam. Diagnostic code #1 This report was dictated in MDT
== END 2020-05-21 11:15 | disposition home or self-care (01) ==
LOC: MW.ED 10:18
DX: M77.11 Lateral epicondylitis, right elbow (principal)
CPT/HCPCS: 73080-26-RT; 73080-RT; 73110-26-RT; 73110-RT; 99283

== ENCOUNTER 2021-05-13 10:52 | Emergency (ER) | payer MEDICAID ==
[2021-05-13 11:11] VITALS: BP 148/100
--- NOTE | 2021-05-13 11:17 | EDM.PDOC ---
ED HPI GENERAL MEDICAL PROBLEM - General Chief Complaint: General Stated Complaint: COVID SYMTOMS Time Seen by Provider: 05/13/21 10:58 Source of Information: Reports: Patient History Limitations: Reports: No Limitations - History of Present Illness INITIAL COMMENTS - FREE TEXT/NARRATIVE: HISTORY AND PHYSICAL: History of present illness: Patient is a 35-year-old female who presents to the emergency room with complaints of cough x4 to 5 days and loss of taste and smell. She states she feels fatigued and is concerned she has COVID-19. She has been out in the community although no known exposures to COVID-19. Patient denies any fever, chills, headache, change in vision, syncope or near syncope. Denies any chest pain, back pain, shortness of breath or hemoptysis. Denies any GI or symptoms. Has Mirena, no concern for . Patient has been eating and drinking appropriately. Has not been vaccinated for COVID. She is a smoker, 1 ppd. Review of systems: As per history of present illness and below otherwise all systems reviewed and negative. Past medical history: As per history of present illness and as reviewed below otherwise noncontributory. Surgical history: As per history of present illness and as reviewed below otherwise noncontributory. Social history: See social history for further information Family history: As per history of present illness and as reviewed below otherwise noncontributory. Physical exam: General: Well developed and well nourished 35-year-old female. Alert and orientated x 3. Nontoxic in appearance and in no acute distress. Vital signs are stable and have been reviewed by me. Nursing notes were reviewed. HEENT: Atraumatic, normocephalic, pupils equal and reactive bilaterally, negative for conjunctival pallor or scleral icterus, mucous membranes moist, TMs normal bilaterally, throat clear, neck supple, nontender, trachea midline. No drooling or trismus noted. No meningeal signs. No hot potato voice noted. Lungs: Clear to auscultation bilaterally. No wheezes, rales, or rhonchi. Chest nontender. Normal work of breathing, no accessory muscles used. Dry cough. Heart: S1S2, regular rate and rhythm without overt murmur, gallops, or rubs. No JVD. No peripheral edema Abdomen: Soft, nondistended, nontender. Normoactive bowel sounds. Negative for masses or costovertebral tenderness. Skin: Intact, warm, dry. No lesions or rashes noted. Hematologic: No petechiae or purpra. Mucosa appropriate color and normal nail bed color and refill. Extremities: Atraumatic, moves all extremities per self without difficulty or deficits, negative for cords or calf pain. Neurovascular unremarkable. Neuro: Awake, alert, oriented. Cranial nerves II through XII unremarkable. Cerebellum unremarkable. Motor and sensory unremarkable throughout. Exam nonfocal. Psychiatric: Mood and affect are appropriate. Normal thought process. Answering questions appropriately. Please note that the patient was seen and evaluated during the 2019 SARS-CoV-2 novel coronavirus pandemic period. Community viral transmission is ongoing at time of this encounter and the emergency department is operating under pandemic response procedures. Medical Decision Making: Patient is a 35-year-old female who presents to the emergency room with complaints of cough and concerns of COVID-19. I did offer to do a chest x-ray and testing for COVID-19. She refuses to have the nasopharyngeal swab, the only way of testing at our facility. She declines wanting testing for COVID at this time but is agreeable to the chest x-ray. Normal-appearing chest x-ray. I did encourage her to follow-up with her provider of choice for Covid testing if she continues to have concerns, as she did decline testing here today. Vital signs are stable. I have talked with the patient about today's findings, in addition to providing specific details for plan of care. Reassessment at the time of disposition demonstrates that the patient is in no acute distress. The patient is stable for discharge, counseling was provided and we discussed in great detail signs and symptoms that would prompt them to return to the Emergency Department. Medication, follow up and supportive care measures were reviewed and discussed. Voices understanding and is agreeable to plan of care. Denies any further questions or concerns at this time. Diagnostics: Chest x-ray Therapeutics: None Prescription: Tessalone Impression: Viral URI Plan: 1. You were evaluated today on an emergent basis. Your chest x-ray shows no signs of infection. 2. You can alternate Tylenol and ibuprofen as needed for pain and fever management. 3. We encourage you to follow up with your primary care provider in the next few days for re-evaluation and further care/management. 4. If your symptoms should worsen, new symptoms develop or any of the signs and symptoms we discussed should arise please return to the emergency room or call 911 (if needed). Definitive disposition and diagnosis as appropriate pending reevaluation and review of above. - Related Data Allergies Allergy/AdvReac Type Severity Reaction Status Date / Time No Known Allergies Allergy Verified 05/13/21 11:06 Home Meds: Home Meds Benzonatate [Tessalon Perle] 100 mg PO TID PRN #20 capsule 05/13/21 [Rx] Past Medical History - Past Health History Medical/Surgical History: Denies Medical/Surgical History HEENT History: Reports: None Cardiovascular History: Reports: None Respiratory History: Reports: None Gastrointestinal History: Reports: None Genitourinary History: Reports: None [employer]AFF [employer] OFFICER History: Reports: None Musculoskeletal History: Reports: None Neurological History: Reports: None Psychiatric History: Reports: None Endocrine/Metabolic History: Reports: None Hematologic History: Reports: None Immunologic History: Reports: None Oncologic (Cancer) History: Reports: None Dermatologic History: Reports: None - Infectious Disease History Infectious Disease History: Reports: None - Past Surgical History Head Surgeries/Procedures: Reports: None Cardiovascular Surgical History: Reports: None Female Surgical History: Reports: None Social & Family History - Family History Family Medical History: No Pertinent Family History Cardiac: Reports: High Cholesterol OBGYN: Reports: Endocrine/Metabolic: Reports: Diabetes, type II Oncologic: Reports: Lung - Tobacco Use Tobacco Use Status *Q: Current Every Day Tobacco User Years of Tobacco use: 7 Packs/Tins Daily: 0.5 - Caffeine Use Caffeine Use: Reports: None - Recreational Drug Use Recreational Drug Use: Yes Recreational Drug Type: Reports: Marijuana/Hashish Recreational Drug Use Frequency: Socially ED ROS GENERAL - Review of Systems Review Of Systems: Comprehensive ROS is negative, except as noted in HPI. ED EXAM, GENERAL - Physical Exam Exam: See Below (See dictation) Course - Vital Signs Last Recorded V/S: Last Vital Signs Temp 97.4 F 05/13/21 11:06 Pulse 78 05/13/21 12:24 Resp 16 05/13/21 12:24 BP 148/100 H 05/13/21 11:06 Pulse Ox 98 05/13/21 12:24 Departure - Departure Time of Disposition: 12:20 Disposition: Home, Self-Care 01 Clinical Impression: Viral URI - Discharge Information Prescriptions: Benzonatate [Tessalon Perle] 100 mg PO TID PRN #20 capsule PRN Reason: Cough Instructions: Upper Respiratory Infection, Adult, [id number] Referrals: PCP,None [Primary Care Provider] - Forms: ED Department Discharge Additional Instructions: The following information is given to patients seen in the emergency department who are being discharged to home. This information is to outline your options for follow-up care. We provide all patients seen in our emergency department with a follow-up referral. The need for follow-up, as well as the timing and circumstances, are variable depending upon the specifics of your emergency department visit. If you don't have a primary care physician on staff, we will provide you with a referral. We always advise you to contact your personal physician following an emergency department visit to inform them of the circumstance of the visit and for follow-up with them and/or the need for any referrals to a consulting specialist. The emergency department will also refer you to a specialist when appropriate. This referral assures that you have the opportunity for follow-up care with a specialist. All of these measure are taken in an effort to provide you with optimal care, which includes your follow-up. Under all circumstances we always encourage you to contact your private physician who remains a resource for coordinating your care. When calling for follow-up care, please make the office aware that this follow-up is from your recent emergency room visit. If for any reason you are refused follow-up, please contact the [facility] Emergency Department at and asked to speak to the emergency department charge nurse. [facility] [address] [place] [address] [id number] [address] [id number] Thank you for choosing the [facility] emergency department in [place] for your medical needs today. It was a pleasure caring for you. Today you were seen in the emergency department for viral upper respiratory infection. 1. You were evaluated today on an emergent basis. Your chest x-ray shows no signs of infection. 2. You can alternate Tylenol and ibuprofen as needed for pain and fever management. 3. We encourage you to follow up with your primary care provider in the next few days for re-evaluation and further care/management. 4. If your symptoms should worsen, new symptoms develop or any of the signs and symptoms we discussed should arise please return to the emergency room or call 911 (if needed). Sepsis Event Note (ED) - Evaluation Sepsis Screening Result: No Definite Risk - Focused Exam Vital Signs: Vital Signs Temp Pulse Resp BP Pulse Ox 05/13/21 12:24 78 16 98 05/13/21 11:06 97.4 F 106 H 18 148/100 H 100
--- NOTE | 2021-05-13 12:15 | CR ---
HISTORY: Shortness of breath. TECHNIQUE: One view of the chest. COMPARISON: No prior. FINDINGS: Cardiac size and pulmonary vasculature are within normal limits. There is no acute lung infiltrate or pulmonary edema. No pneumothorax or pleural effusion. No acute bony abnormality. IMPRESSION: No acute disease. Dictated by Miguel Shah MD @ 05/13/2021 12:14:32 PM (Electronically Signed)
[2021-05-13 12:25] VITALS: PULSE 78
== END 2021-05-13 12:24 | disposition home or self-care (01) ==
LOC: MW.ED 10:52
DX: J06.9 Acute upper respiratory infection, unspecified (principal); F17.200 Nicotine dependence, unspecified, uncomplicated
CPT/HCPCS: 71045; 71045-26; 93005; 99284-25

== ENCOUNTER 2021-05-13 22:16 | Emergency (ER) | payer MEDICAID ==
--- NOTE | 2021-05-13 23:14 | EDM.PDOC ---
ED HPI GENERAL MEDICAL PROBLEM - General Chief Complaint: General Stated Complaint: VOMITTING BLOOD Time Seen by Provider: 05/13/21 22:25 - History of Present Illness INITIAL COMMENTS - FREE TEXT/NARRATIVE: 35-year-old female presents to the emergency department with chest pain and shortness of breath. Patient states over the last day she lost smell and taste. She was seen in the emergency department and had a chest x-ray and this was negative. According to the note of the nurse practitioner she declined Covid testing. Patient presents when she started having continued symptoms and discomfort to the left nondenominational area with persistent chest tightness and shortness of breath and she had some cough after shower where she coughed up some minor yellow appearing mucus with blood-tinged. Patient denies any history of blood clot. No unilateral leg swelling. No recent travel or injury or cancer or surgery. Patient smokes cigarettes and uses Mirena contraception. Patient denies history of asthma. The chest discomfort is described as a pressure but when she takes a deep breath perhaps this causes sharp pain. Otherwise there is no exacerbating alleviating factors of the chest discomfort headache Pain Score (Numeric/FACES): 10 - Related Data Allergies Allergy/AdvReac Type Severity Reaction Status Date / Time No Known Allergies Allergy Verified 05/13/21 22:30 Home Meds: Home Meds Benzonatate [Tessalon Perle] 100 mg PO TID PRN #20 capsule 05/13/21 [Rx] Past Medical History - Past Health History Medical/Surgical History: Denies Medical/Surgical History HEENT History: Reports: None Cardiovascular History: Reports: None Respiratory History: Reports: None Gastrointestinal History: Reports: None Genitourinary History: Reports: None OPERATIONS GENERAL AGENT History: Reports: None Musculoskeletal History: Reports: None Neurological History: Reports: None Psychiatric History: Reports: None Endocrine/Metabolic History: Reports: None Insulin Pump Model and Information Systems Director: None Hematologic History: Reports: None Immunologic History: Reports: None Oncologic (Cancer) History: Reports: None Dermatologic History: Reports: None - Infectious Disease History Infectious Disease History: Reports: None - Past Surgical History Head Surgeries/Procedures: Reports: None Cardiovascular Surgical History: Reports: None Female Surgical History: Reports: None Social & Family History - Family History Family Medical History: No Pertinent Family History Cardiac: Reports: High Cholesterol OBGYN: Reports: Endocrine/Metabolic: Reports: Diabetes, type II Oncologic: Reports: Lung - Caffeine Use Caffeine Use: Reports: None - Recreational Drug Use Recreational Drug Type: Reports: Marijuana/Hashish ED ROS GENERAL - Review of Systems Review Of Systems: See Below Constitutional: Denies: Fever HEENT: Reports: Other (Pain to the right nondenominational area) Respiratory: Reports: Shortness of Breath, Hemoptysis Cardiovascular: Reports: Chest Pain GI/Abdominal: Denies: Diarrhea, Vomiting Musculoskeletal: Reports: No Symptoms Skin: Denies: Rash Neurological: Reports: No Symptoms ED EXAM, GENERAL - Physical Exam Exam: See Below Free Text/Narrative:: CONSTITUTIONAL: well appearing in no acute distress SKIN: Warm, dry, and intact without rash HENT: Normocephalic, atraumatic. No swelling or edema to the temporal areas. TM clear PULMONARY: clear to ausculation bilaterally. No rales, rhonchi, wheezing CARDIOVASCULAR: regular rate, No murmur, rubs, or gallops GASTROINTESTINAL: soft, nondistended, nontender NEUROLOGIC: normal speech, II-XII intact. light touch/5/5 power equal and symmetric in upper and lower extremities without deficit MUSCULOSKELETAL: no gross deformities, atraumatic PSYCHIATRIC: normal mood and affect Course - Vital Signs Text/Narrative:: Differential diagnosis: ACS, PE, pneumonia, Covid, reactive airway disease, other Patient presents as outlined above. Patient positive for Covid. Chest x-ray earlier today unremarkable and O2 saturation 100%. Patient's lungs are clear. EKG unremarkable with negative troponin and D-dimer. Patient without any significant respiratory distress. Supportive care with return precautions and PCP follow-up and quarantine discussed Last Recorded V/S: Last Vital Signs Temp 36.4 C 05/13/21 22:25 Pulse 86 05/13/21 22:25 Resp 18 05/13/21 22:25 BP 142/93 H 05/13/21 22:25 Pulse Ox 100 05/13/21 22:25 - Orders/Labs/Meds Labs: Laboratory Tests 05/13/21 05/13/21 05/13/21 Range/Units 23:22 23:22 23:22 WBC 4.24 (4.0-11.0) K/uL RBC 4.77 (4.30-5.90) M/uL Hgb 14.2 (12.0-16.0) g/dL Hct 40.8 (36.0-46.0) % MCV 85.5 (80.0-98.0) fL MCH 29.8 (27.0-32.0) pg MCHC 34.8 (31.0-37.0) g/dL RDW Std Deviation 38.1 (28.0-62.0) fl RDW Coeff of [place] 12 (11.0-15.0) % Plt Count 185 (150-400) K/uL MPV 9.60 (7.40-12.00) fL Neut % (Auto) 43.2 L (48.0-80.0) % Lymph % (Auto) 44.1 H (16.0-40.0) % [place] % (Auto) 11.1 (0.0-15.0) % Eos % (Auto) 1.4 (0.0-7.0) % Baso % (Auto) 0.2 (0.0-1.5) % Neut # (Auto) 1.8 (1.4-5.7) K/uL Lymph # (Auto) 1.9 (0.6-2.4) K/uL [place] # (Auto) 0.5 (0.0-0.8) K/uL Eos # (Auto) 0.1 (0.0-0.7) K/uL Baso # (Auto) 0.0 (0.0-0.1) K/uL Nucleated RBC % 0.0 /100WBC Nucleated RBCs # 0 K/uL APTT 26.6 (18.6-31.3) SEC D-Dimer, Quantitative 0.21 (0.0-0.50) mg/L FEU Sodium 140 (136-145) mmol/L Potassium 4.1 (3.5-5.1) mmol/L Chloride 104 (98-107) mmol/L Carbon Dioxide 29.7 (21.0-32.0) mmol/L BUN 13 (7.0-18.0) mg/dL Creatinine 0.9 (0.6-1.0) mg/dL Est Cr Clr Drug Dosing 81.67 mL/min Estimated GFR (MDRD) > 60.0 ml/min Glucose 117 H (74-106) mg/dL Calcium 9.1 (8.5-10.1) mg/dL Total Bilirubin 1.0 (0.2-1.0) mg/dL AST 15 (15-37) IU/L ALT 25 (14-63) IU/L Alkaline Phosphatase 81 (46-116) U/L Troponin I < 0.050 (0.000-0.056) ng/mL Total Protein 7.3 (6.4-8.2) g/dL Albumin 3.8 (3.4-5.0) g/dL Globulin 3.5 (2.6-4.0) g/dL Albumin/Globulin Ratio 1.1 (0.9-1.6) SARS-CoV-2 RNA (FUENTES) (NEGATIVE) 05/13/21 Range/Units 23:25 WBC (4.0-11.0) K/uL RBC (4.30-5.90) M/uL Hgb (12.0-16.0) g/dL Hct (36.0-46.0) % MCV (80.0-98.0) fL MCH (27.0-32.0) pg MCHC (31.0-37.0) g/dL RDW Std Deviation (28.0-62.0) fl RDW Coeff of [place] (11.0-15.0) % Plt Count (150-400) K/uL MPV (7.40-12.00) fL Neut % (Auto) (48.0-80.0) % Lymph % (Auto) (16.0-40.0) % [place] % (Auto) (0.0-15.0) % Eos % (Auto) (0.0-7.0) % Baso % (Auto) (0.0-1.5) % Neut # (Auto) (1.4-5.7) K/uL Lymph # (Auto) (0.6-2.4) K/uL [place] # (Auto) (0.0-0.8) K/uL Eos # (Auto) (0.0-0.7) K/uL Baso # (Auto) (0.0-0.1) K/uL Nucleated RBC % /100WBC Nucleated RBCs # K/uL APTT (18.6-31.3) SEC D-Dimer, Quantitative (0.0-0.50) mg/L FEU Sodium (136-145) mmol/L Potassium (3.5-5.1) mmol/L Chloride (98-107) mmol/L Carbon Dioxide (21.0-32.0) mmol/L BUN (7.0-18.0) mg/dL Creatinine (0.6-1.0) mg/dL Est Cr Clr Drug Dosing mL/min Estimated GFR (MDRD) ml/min Glucose (74-106) mg/dL Calcium (8.5-10.1) mg/dL Total Bilirubin (0.2-1.0) mg/dL AST (15-37) IU/L ALT (14-63) IU/L Alkaline Phosphatase (46-116) U/L Troponin I (0.000-0.056) ng/mL Total Protein (6.4-8.2) g/dL Albumin (3.4-5.0) g/dL Globulin (2.6-4.0) g/dL Albumin/Globulin Ratio (0.9-1.6) SARS-CoV-2 RNA (FUENTES) POSITIVE H (NEGATIVE) Departure - Departure Time of Disposition: 00:49 Disposition: Home, Self-Care 01 Condition: Good Clinical Impression: COVID-19 - Discharge Information Instructions: COVID-19 Frequently Asked Questions Referrals: PCP,None [Primary Care Provider] - Forms: ED Department Discharge Additional Instructions: Return for any shortness of breath, change or worsening condition. Below are the quarantine instructions from CDC based guidelines: You can be around others after: 10 days since symptoms first appeared and 24 hours with no fever without the use of fever-reducing medications and Other symptoms of COVID-19 are improving* *Loss of taste and smell may persist for weeks or months after recovery and need not delay the end of isolation? Note that these recommendations do not apply to people with severe COVID-19 or with weakened immune systems (immunocompromised). The following information is given to patients seen in the emergency department who are being discharged to home. This information is to outline your options for follow-up care. We provide all patients seen in our emergency department with a follow-up referral. The need for follow-up, as well as the timing and circumstances, are variable depending upon the specifics of your emergency department visit. If you don't have a primary care physician on staff, we will provide you with a referral. We always advise you to contact your personal physician following an emergency department visit to inform them of the circumstance of the visit and for follow-up with them and/or the need for any referrals to a consulting specialist. The emergency department will also refer you to a specialist when appropriate. This referral assures that you have the opportunity for follow-up care with a specialist. All of these measure are taken in an effort to provide you with optimal care, which includes your follow-up. Primary care clinics in the area: [facility] [address] [place] [address] [place] [address] Under all circumstances we always encourage you to contact your private physician who remains a resource for coordinating your care. When calling for follow-up care, please make the office aware that this follow-up is from your recent emergency room visit. If for any reason you are refused follow-up, please contact the [facility] Emergency Department at and asked to speak to the emergency department charge nurse. Sepsis Event Note (ED) - Focused Exam Vital Signs: Vital Signs Temp Pulse Resp BP Pulse Ox 05/13/21 22:25 36.4 C 86 18 142/93 H 100
[2021-05-13 23:51] LABS: BLOOD UREA NITROGEN,BUN 13 mg/dL (7.0-18.0); CARBON DIOXIDE,CO2 29.7 mmol/L (21.0-32.0); CHLORIDE,CL 104 mmol/L (98-107); GLUCOSE RANDOM 117 mg/dL (74-106); POTASSIUM,K 4.1 mmol/L (3.5-5.1); SODIUM,NA 140 mmol/L (136-145)
[2021-05-14 00:58] VITALS: BP 130/83; PULSE 75
== END 2021-05-14 00:58 | disposition home or self-care (01) ==
LOC: MW.ED 22:16
DX: U07.1 COVID-19 (principal)
CPT/HCPCS: 36415; 80053; 84484; 85025; 85379; 85730; 99284-25; U0002

== ENCOUNTER 2025-07-27 18:39 | Emergency (ER) | payer SELFPAY ==
[2025-07-27] MEDS: Ondansetron 4 MG Tab.DIS PO ONE (19:20)
[2025-07-27 20:00] VITALS: BP 148/96; PULSE 71
== END 2025-07-27 20:10 | disposition home or self-care (01) ==
LOC: MW.ED 18:39
DX: S62.635A Displaced fracture of distal phalanx of left ring finger, initial encounter for closed fracture (principal); F17.200 Nicotine dependence, unspecified, uncomplicated; Z79.899 Other long term (current) drug therapy; W18.39XA Other fall on same level, initial encounter; Y93.89 Activity, other specified
CPT/HCPCS: 26755; 73130; 99283; A9270; J2003; 29131